=== PATIENT | male | born 1930 | race Caucasian/White ===

== ENCOUNTER 2017-01-07 13:33 | Emergency (ER) | payer MEDICARE, OTHER ==
[~2017-01-07 13:33] MED LIST: ADVAIR 250-501 EACH INH; AGGRENOX 25 MG-21 EA PO; ALBUTEROL2.5 MG/0.5 PO; ALBUTEROL2.5 MG/3 M INH; ASPIRIN EC81 MG PO; ASPIRIN-DIPYRI1 EACH PO; ATENOLOL25 MG PO; ATENOLOL50 MG PO; ATIVAN1 MG PO; COMBIVENT RESPIM4 GM; DICLOFENAC SODI75 MG PO; DUONEB 0.5 MG-33 ML; EFFEXOR XR37.5 MG PO; FLOMAX0.4 MG PO; FLOVENT DISKU250 MCG PO; GABAPENTIN100 MG PO; GABAPENTIN600 MG PO; HYDROCHLOROTH12.5 M1 PO; IPRAT-ALBUT 0.5-3 ML INH; ISOSORBIDE MONO30 MG PO; LEVAQUIN500 MG PO; LEVAQUIN750 MG PO; LIPITOR10 MG PO; LIPITOR40 MG PO; LISINOPRIL10 MG PO; LOTRISONE CREAM15 GM; LOTRISONE CREAM15 GM TOP; NEXIUM40 MG PO; NITROGLYCERIN0.4 MG SL; NITROSTAT0.4 MG SL; NORCO 5-325 TA1 EACH PO; PREDNISONE10 MG PO; PREDNISONE20 MG PO; PROZAC10 MG PO; RA P-COL RITE1 EACH PO; SINGULAIR10 MG PO; SPIRIVA18 MCG INH; THEO-24300 MG PO; TIGAN300 MG PO
== END 2017-01-07 14:00 | disposition home or self-care (01) ==
LOC: ED 13:33
DX: S61.211A Laceration without foreign body of left index finger without damage to nail, initial encounter (principal); Z00.8 Encounter for other general examination; X58.XXXA Exposure to other specified factors, initial encounter

== ENCOUNTER 2018-08-09 11:38 | Emergency (ER) | payer MEDICARE, OTHER ==
[~2018-08-09] VITALS: Ht 182.9 cm; Wt 94.3 kg
--- OUTSIDE RECORDS SUMMARY | 2018-08-09 11:40 | XMS ---
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 [facility]o VISIT COUNT (12 MO.) 1 [facility] TOTAL 1 NOTE: Visits indicate total known visits. ED/UCC VISIT TRACKING (12 MO.) 08/09/2018 11:[address] [facility] [place] TYPE: Emergency COMPLAINT: - SOB INPATIENT VISIT TRACKING (12 MO.) No inpatient visits to display in this time frame [email or web address]
[2018-08-09] MEDS ORDERED: RA P-COL RITE1 EACH PO (12:14)
[2018-08-09] MEDS ORDERED: ATORVASTATIN CA10 MG PO (12:15)
[2018-08-09] MEDS ORDERED: OMEPRAZOLE40 MG PO (12:16)
[2018-08-09] MEDS ORDERED: BREO ELLIPTA 21 EACH INH (12:16)
[2018-08-09] MEDS ORDERED: PROBIOTIC 4X C1 EACH PO (12:18)
[2018-08-09] MEDS ORDERED: MUCUS RELIEF400 MG PO (12:18)
[2018-08-09] MEDS ORDERED: PREDNISONE20 MG PO (15:07)
--- NOTE | 2018-08-10 11:30 | EKG ---
[facility] [address] [facility] [facility] [address] [place] [address] Signed Sinus rhythm with marked sinus arrhythmia with 1st degree AV block Left axis deviation Low voltage QRS Inferior infarct (cited on or before 25-SEP-2016) Abnormal ECG When compared with ECG of 25-SEP-2016 11:17, premature ventricular complexes are no longer present DC interval has increased Nonspecific T wave abnormality now evident in Anterior leads QT has shortened Confirmed by NIC MCKEE DO ([id number]) on 08/10/2018 11:30:24 AM Electronically Signed By: NIC MCKEE DO 08/10/18 1130 PATIENT NAME: KAMRAN ARAGON Electrocardiogram DATE OF : [birth year] PHYSICIAN: NIC MCKEE DO REPORT #: [id number] REPORT IS CONFIDENTIAL AND NOT TO BE RELEASED WITHOUT AUTHORIZATION
== END 2018-08-09 15:37 | disposition home or self-care (01) ==
LOC: ED 11:38
DX: J44.1 Chronic obstructive pulmonary disease with (acute) exacerbation (principal); N17.9 Acute kidney failure, unspecified; I50.9 Heart failure, unspecified; I25.2 Old myocardial infarction; Z99.81 Dependence on supplemental oxygen; Z87.891 Personal history of nicotine dependence; Z95.5 Presence of coronary angioplasty implant and graft; Z90.89 Acquired absence of other organs; Z79.899 Other long term (current) drug therapy; Z79.82 Long term (current) use of aspirin
CPT/HCPCS: 71045; 80053; 83735; 83880; 84484; 85025; 93005; 93010; 94640; 96360; 96361; 99285-25; J7030; J7512

== ENCOUNTER 2018-08-13 13:25 | Inpatient (IN) | payer MEDICARE, OTHER ==
[~2018-08-13] VITALS: Ht 182.9 cm; Wt 88.6 kg
[~2018-08-13 13:25] MED LIST changes: +ATORVASTATIN CA10 MG PO; +BREO ELLIPTA 21 EACH INH; +MUCUS RELIEF400 MG PO; +OMEPRAZOLE40 MG PO; +PROBIOTIC 4X C1 EACH PO
--- OUTSIDE RECORDS SUMMARY | 2018-08-13 13:28 | XMS ---
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 Care History Medical/Surgical 08/10/2018 [facility] - Patient is currently established with [facility]. If patient is seen in the ED during business hours. Please contact CHWs at [facility]. Care Recommendation: This patient has had 5 or more Emergency Department visits in the last 12 months.\T\nbsp; Patient requires education on the scope and purpose of the ED as an acute care provider not a Primary Care Provider and should not be utilized for chronic conditions.\T\nbsp; These are guidelines and the provider should exercise clinical judgment when providing care. E.D. VISIT COUNT (12 MO.) 2 ART [facility] TOTAL 2 NOTE: Visits indicate total known visits. ED/UCC VISIT TRACKING (12 MO.) 08/13/2018 13:26 [facility] [place] TYPE: Emergency COMPLAINT: - SOB 08/09/2018 11:[address] 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
--- NOTE | 2018-08-13 16:05 | NUR ---
88 YR OLD MALE PTIENT ADMITTED TO CCU FROM ED VIA STRETCHER UNDER DR. MCKEE WITH DX OF PNEUMONIA. PT FELL ON RIGHT SIDE LAST MONDAY, FX RIBS 6 AND 7 ON RIGHT SIDE WELL R SHOULDER PAIN. HAS INCREASED PAIN IN RIGHT SIDE WITH MOVEMENT.
--- NOTE | 2018-08-13 16:20 | NUR ---
VAPOTHERM APPLIED AT 40% AND 20 L. O2 SAT 90-92. NOLAND CATH 16 GA PLACED W/O PROBLEMS WITH RETURN OF ANGELA URINE.
--- NOTE | 2018-08-13 18:31 | NUR ---
TAKING CLEAR LIQUIDS WHILE VISITING WITH FAMILY/FRIENDS.
--- NOTE | 2018-08-13 18:57 | NUR ---
UA AND FLU SWAB SENT TO LAB. ABIMAEL NEED FOR PAIN MEDICATION.
--- NOTE | 2018-08-13 19:30 | NUR ---
REPORT TO NEXT SHIFT. PATIENT REMAINS ON VAPOTHERM AT 40 % AND 20 L, IVF INFUSING. NOLAND PATENT.
--- NOTE | 2018-08-13 20:10 | NUR ---
WATCHING TV. STATES IS COMFORTABLE AT THIS TIME. VERA VAPOTHERM WELL. URINE OUTPUT IS VERY GOOD.
--- NOTE | 2018-08-13 20:50 | NUR ---
RT IN TO GIVEN NEBS. VERA WELL.
--- NOTE | 2018-08-13 22:25 | NUR ---
SLEEPING. SATS 88. AWARE.
--- NOTE | 2018-08-14 00:10 | NUR ---
PT WAS SOUNDLY ASLEEP AND STARTLED WHEN AWAKENED. CALMED EASILY.REPOSITIONED UP IN BED. RT HERE TO GIVE NEBS. HAS UPPER AIRWAY CONGESTION AND ENCOURAGED TO COUGH. TAKING WATER WELL.
--- NOTE | 2018-08-14 01:12 | NUR ---
SLEEPING. SAT 88-89 WHILE ASLEEP.
--- NOTE | 2018-08-14 03:00 | NUR ---
CONT TO SLEEP WITH VAPOTHERM IN PLACE. SATS 88-91% .
--- NOTE | 2018-08-14 04:06 | NUR ---
AWAKE, STATES FEELING BETTER. HAS BEEN RESTING WELL. RT IN TO GIVE NEB.
--- NOTE | 2018-08-14 06:04 | NUR ---
AWAKE WATCHING TV AND DRINKING COFFEE. TALKATIVE. STATES FEELS LIKE HE IS READY TO GO HOME.
--- NOTE | 2018-08-14 06:05 | NUR ---
OVERALL PT HAD A GOOD NIGHT. STATES IS FEELING BETTER. CONT ON VAPOTHERM AT 40%, 20L.
--- NOTE | 2018-08-14 08:25 | NUR ---
PT VERY PLEASANT, CALM AND COOPERATIVE THIS MORNING. PT DENIES ANY PAIN, N/V OR BREATHING PROBLEMS, STATING THAT HE'S "READY TO GO HOME." EDUCATED PT ON IMPORTANCE OF OXYGENATION AND PLAN OF CARE. A/O BUT FORGETFUL. 20 L/MIN AND 40% O2 IN PLACE. PT'S LUNG SOUNDS COURSE THROUGHOUT. PT HAS PRODUCTIVE COUGH WITH LARGE SPUTUM PRODUCTION. LR RUNNING CONTINUOUSLY AT 75 ML/HR. ACTIVE BOWEL TONES. EDUCATION COMPLETED BUT HE NEEDS REINFORCEMENT. CALL LIGHT WITHIN REACH. FALL PRECAUTIONS IN PLACE. WILL CONTINUE TO MONITOR.
--- NOTE | 2018-08-14 09:30 | NUR ---
THIS RN ASSISTED PT UP TO THE RECLINER CHAIR AT THIS TIME. PT WAS VERY WEAK ON HIS FEET, BARELY ABLE TO BEAR HIS OWN WEIGHT, AND HE WAS VERY SOB WITH EXERTION/TRANSFER. AT THIS POINT, PT WAS ON 20 L/MIN AND SATURATIONS DROPPED TO 70'S. AFTER A FEW MINUTES IN CHAIR WITH DEEP BREATHES AND REST, PT'S OXYGEN SATURATION RETURNED TO 90'S. PT STILL DENIES ANY NEEDS TO BE MET. VERY PLEASANT AND COOPERATIVE. LINENS CHANGED. CALL LIGHT WITHIN REACH. FALL PRECAUTIONS IN PLACE. WILL CONTINUE TO MONITOR.
--- NOTE | 2018-08-14 10:20 | NUR ---
PT REMAINS UP IN THE CHAIR WATCHING TV. HE DENIES PAIN. HE DENIES ANY NEEDS TO BE MET AT THIS TIME. CALL LIGHT WITHIN REACH. FALL PRECAUTIONS IN PLACE. WILL CONTINUE TO MONITOR.
--- NOTE | 2018-08-14 11:20 | NUR ---
PT UP IN CHAIR VISITING WITH [employer]AXI SERVICER AND FRIEND. PT HAS JUST FINISHED VISITING WITH CASE MANAGEMENT. PT IS ON 8 L/MIN O2 AND 40% FIO2. NO C/O PAIN. NO QUESTIONS OR CONCERNS. UPDATED ON PLAN OF CARE AND NEEDS REINFORCEMENT ON WHY HE'S HERE IN HOSPITAL. CALL LIGHT WITHIN REACH. FALL PRECAUTIONS IN PLACE. WILL CONTINUE TO MONITOR.
--- NOTE | 2018-08-14 12:09 | NUR ---
PT STATES THAT WHEN HE IS READY FOR DC HE WILL BE RETURNING TO [facility] OR HE'S GOING TO BE STAYING RIGHT HERE. HE STATES HE WILL REFUSE TO GO TO A "LONG-TERM" EVER.
--- NOTE | 2018-08-14 12:10 | NUR ---
PT REMAINS UP IN THE CHAIR WITH NO C/O PAIN, N/V, QUESTIONS OR CONCERNS. PT STILL COMMENTS THAT HE'S "READY TO GO HOME" BUT I REINFORCED THE PLAN OF CARE WELL HIS O2 NEEDS ON VAPOTHERM. ASSESSMENT COMPLETED. NOLAND STILL DRAINING CLEAR, YELLOW, ADEQUATE URINE. LUNGS REMAIN COURSE SOUNDING. SEE CHARTED ASSESSMENT. VSS. CALL LIGHT WITHIN REACH. FALL PRECAUTIONS IN PLACE. WILL CONTINUE TO MONITOR.
--- NOTE | 2018-08-14 13:00 | NUR ---
PT REQUEST TO SIT ON COMMODE FOR POSSIBLE BM. PT'S FULL BED BATH COMPLETED AT THIS TIME. NOLAND CATH CARE COMPLETED. NO BM WAS HAD, JUST FLATUS. NOLAND CONTINUES TO DRAIN ADEQUATE AMOUNT OF URINE. PT ASSISTED BACK TO CHAIR WHERE HE REMAINS COMFORTABLE WITH NO C/O PAIN. STILL VERY PLEASANT, JOKING WITH THIS RN. CALL LIGHT WITHIN REACH. FALL PRECAUTIONS IN PLACE. WILL CONTINUE TO MONITOR.
--- NOTE | 2018-08-14 13:39 | EKG ---
[facility] [address] [facility] [place] [address] Signed Sinus tachycardia Left axis deviation Pulmonary disease pattern Nonspecific T wave abnormality Abnormal ECG When compared with ECG of 09-AUG-2018 11:55, IN interval has decreased Vent. rate has increased BY 38 BPM Non-specific change in ST segment in Anterior leads Confirmed by NIC MCKEE DO ([id number]) on 08/14/2018 1:38:49 PM Electronically Signed By: NIC MCKEE DO 08/14/18 1339 PATIENT NAME: MARGOKAMRAN Sha Electrocardiogram DATE OF : [birth year] PHYSICIAN: NIC MCKEE DO REPORT #: [id number] REPORT IS CONFIDENTIAL AND NOT TO BE RELEASED WITHOUT AUTHORIZATION
--- NOTE | 2018-08-14 14:20 | NUR ---
PT REQUEST FOR COMMODE AGAIN AT THIS TIME- MEDIUM SIZED BM WAS HAD. PT CLEANED AND ASSISTED BACK TO THE RECLINER. NO OTHER NEEDS TO BE MET AT THIS TIME. CALL LIGHT WITHIN REACH. FALL PRECAUTIONS IN PLACE. WILL CONTINUE TO MONITOR.
--- NOTE | 2018-08-14 15:24 | NUR ---
SCHEDULED TYLENOL GIVEN DESPITE PT STATING HE HAS NO PAIN- GIVEN FOR SORENESS FROM RECENT FALL. PT VS AND CONDITION REMAIN STABLE. HE STATES THAT HE FEELS "MUCH BETTER" THAN WHEN HE CAME IN TO HOSPITAL. HIS O2 SATURATIONS REMAIN ADEQUATE ON VAPOTHERM. NO QUESTIONS, CONCERNS OR REQUESTS AT THIS TIME. CALL LIGHT WITHIN REACH. PT VISIBLE FROM NURSES STATION. WILL CONTINUE TO MONITOR.
--- NOTE | 2018-08-14 16:20 | NUR ---
5 BEAT RUN OF VTACH AT THIS TIME
--- NOTE | 2018-08-14 16:25 | NUR ---
PT ASSISTED TO COMMODE AGAIN AT THIS TIME; PT HAD SECOND BM OF THE DAY. SOFT. MEDIUM. BROWN. ASSESSMENT COMPLETED. LUNGS COURSE AND WET THROUGHOUT ALL LOBES. VERY SOB WITH EXERTION TO AND FROM COMMODE/RECLINER. 02 SATS CONTINUE TO DROP TO 70'S WHILE TRANSFERING AND IT TAKES 2-3 MINUTES OF REST FOR PT'S SATS TO GO BACK TO 90'S. PT REMAINS ON 8 L/MIN 40% ON VAPOTHERM. PT VERY PLEASANT, CALM AND COOPERATIVE; A/O BUT FORGETFUL. PT CONTINUES TO HAVE THICK, YELLOW SPUTUM WITH HIS STRONG COUGH- PT ENCOURAGED TO COUGH AND DEEP BREATHE. PT HAS BEEN ON REGULAR DIET AND TOLERATING IT WELL. PT HAS BECOME STRONGER ON HIS FEET SINCE HIS INITIAL AMBULATION/PIVOT TO COMMODE. NOLAND IN PLACE AND WNL. CALL LIGHT WITHIN REACH. FALL PRECAUTIONS IN PLACE. WILL CONTINUE TO MONITOR.
--- NOTE | 2018-08-14 17:32 | NUR ---
PT UP IN CHAIR WATCHING NEWS ON TV. NO C/O PAIN, STATES THAT HE'S COMFORTABLE AND THAT HIS BREATHING IS "FINE." AWAITING HIS DINNER TRAY TO BE ORDERED. NO QUESTIONS OR CONCERNS. CALL LIGHT WITHIN REACH. FALL PRECAUTIONS IN PLACE. WILL CONTINUE TO MONITOR.
--- NOTE | 2018-08-14 18:15 | NUR ---
PT REMAINS UP IN CHAIR EATING DINNER. CALL LIGHT WITHIN REACH. WILL CONTINUE TO MONITOR.
--- NOTE | 2018-08-14 21:00 | NUR ---
ASSESSMENT COMPLETED. PT REMAINS SITTING UP IN CHAIR, FORGETFUL AT TIMES. DENIES PAIN. LUNGS SOMEWHAT COARSE, VAPOTHERM IN PLACE AT 8L WITH FIO2 40%. DENIES SOB WHILE AT REST. IV PATENT, INFUSING WNL. PT DENIES NEEDS AT THIS TIME, CALL LIGHT WITHIN REACH.
--- NOTE | 2018-08-14 22:30 | NUR ---
PT UP TO BSC WITH 2-PA. HAD MEDIUM-SIZED SOFT BM AND THEN RETURNED TO CHAIR. PT BECOMES SOB WITH ACTIVITY AND DESATURATES INTO 70'S. ONCE HE IS BACK IN CHAIR, SATURATIONS INCREASE BACK TO 91%. NOLAND EMPTIED, URINE IS YELLOW IN COLOR. PT PROVIDED WITH WARM BLANKET PER REQUEST. CALL LIGHT REMAINS WITHIN REACH.
--- NOTE | 2018-08-14 23:30 | NUR ---
PT UP TO BSC WITH 2-PA PER REQUEST. PT UNABLE TO HAVE BM AND RETURNED TO BED. WITH ACTIVITY, PT SOB AND STATES "I NEED MORE AIR!" TITRATED VAPOTHERM UP TO 15L. ABLE TO TITRATE BACK TO 8L ONCE HE IS BACK IN CHAIR. CALL LIGHT WITHIN REACH.
--- NOTE | 2018-08-15 00:25 | NUR ---
ASSESSMENT COMPLETED, NO CHANGES FROM PREVIOUS ASSESSMENT. LUNGS REMAIN COARSE, VAPOTHERM IN PLACE AT 8L/40% FIO2, R.T. IN TO GIVE BREATHING TREATMENT. PT DENIES SOB WHILE AT REST. GLASS OF MILK PROVIDED PER REQUEST. CALL LIGHT WITHIN REACH.
--- NOTE | 2018-08-15 00:34 | NUR ---
R.T. TITRATED VAPOTHERM TO 15L AT THIS TIME. PT APPEARS SOMEWHAT AGITATED AND RESTLESS AND STATES HE IS HAVING TROUBLE FALLING ASLEEP. ENCOURAGED PT TO REST. SPO2:93% AT THIS TIME.
--- NOTE | 2018-08-15 02:28 | NUR ---
PT REPORTS 10/10 PAIN IN RIGHT RIBS, PRN TYLENOL ADMINISTERED AT THIS TIME. PT REMAINS SITTING UP IN CHAIR, STATES HE DOES NOT WANT TO GO TO THE BED. VAOPTHERM SETTINGS UNCHANGED. NO FURTHER REQUESTS AT THIS TIME, CALL LIGHT WITHIN REACH.
--- NOTE | 2018-08-15 04:25 | NUR ---
ASSESSMENT COMPLETED, NO CHANGES FROM PREVIOUS ASSESSMENT. PT STATES THAT HIS PAIN HAS IMPROVED SLIGHTLY SINCE RECEIVING PRN TYLENOL. LUNGS REMAIN COARSE, VAPOTHERM IN PLACE 15L 40% FIO2. NOLAND PATENT, UO QS. IV PATENT, INFUSING WNL. R.T. IN TO GIVE BREATHING TREATMENT. CALL LIGHT REMAINS WITHIN REACH. NO FURTHER REQUESTS AT THIS TIME.
--- NOTE | 2018-08-15 07:45 | NUR ---
PT VERY AGITATED AT THIS TIME AND RN ENTERED ROOM TO FIND PT HOLDING HIS IV AFTER PULLING IT OUT. PT AGITATED OVER SALESPERSON WHO CALLED HIS CELL PHONE THIS MORNING. THERAPEUTIC COMMUNICATION GIVEN- PT ABLE TO BE TALKED DOWN BUT HE QUICKLY GETS WORKED UP. WILL CONTINUE TO CALM PT WITH CONVERSATION. CALL LIGHT WITHIN REACH. FALL PRECAUTIONS IN PLACE. WILL CONTINUE TO MONITOR.
--- NOTE | 2018-08-15 08:35 | NUR ---
PT UP IN RECLINER. PT IRRITABLE, AGITATED AND FRUSTRATED. THERAPEUTIC COMMUNICATION AND EMOTIONAL SUPPORT PROVIDED. REORIENTED PT TO SITUATION AND SURROUNDINGS HE WAS CONFUSED TO THEM. OTHERWISE, ALERT AND ORIENTED. FORGETFUL. 15 L/MIN AND 40% FIO2 VIA VAPOTHERM. PRODUCTIVE COUGH WITH THICK YELLOW SPUTUM. COARSE LUNG SOUNDS. ASSISTED PT TO AND FROM COMMODE AT THIS TIME- SMALL SMEAR ON CHUX PAD THAT WAS UNDER PT. NOLAND CATH IN PLACE WITH ADEQUATE, CLEAR YELLOW URINE OUTPUT. TYLENOL GIVEN FOR PT'S RIGHT RIGH PAIN- UNABLE TO RATE PAIN SCORE. EDUCATION COMPLETED WITH PT BUT HE REQUIRES REINFORCEMENT. PT HAS NO IV ACCESS AT THIS TIME PT PULLED IT OUT HIMSELF AT 0745. WILL PLACE NEW IV. CALL LIGHT WITHIN REACH. PT VISIBLE FROM NURSES STATION. WILL CONTINUE TO MONITOR.
[2018-08-15] MEDS ORDERED: NEURONTIN600 MG PO (09:40)
[2018-08-15] MEDS ORDERED: SPIRIVA18 MCG INH (09:41)
--- NOTE | 2018-08-15 09:44 | NUR ---
Medications reconciled using pharmacy records and patient interview
--- NOTE | 2018-08-15 10:10 | NUR ---
NOLAND CATH REMOVED AT THIS TIME PER DR. SANDOVAL'S VERBAL ORDER. NOLAND REMOVED WITHOUT COMPLICATION- PT EDUCATED ON ELIMINATION. PT DUE TO VOID AND I WILL MONITOR THIS. PER JEAN PIERRE AT THE BEDSIDE, PT IS INCONTINENT. CALL LIGHT WITHIN REACH. FALL PRECAUTIONS IN PLACE. WILL CONTINUE TO MONITOR.
--- NOTE | 2018-08-15 10:47 | NUR ---
PT MUCH MORE CALM AND COOPERATIVE AT THIS TIME COMPARED TO THIS MORNING. HIS CAREGIVER JEAN PIERRE IS AT HIS SIDE. PRN NORCO TAB GIVEN FOR RIB PAIN. CALL LIGHT WITHIN REACH. WILL CONTINUE TO MONITOR.
--- NOTE | 2018-08-15 11:20 | NUR ---
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 FREQUENT EMOTIONAL SUPPORT GIVEN. CALL LIGHT WITHIN REACH. WILL CONTINUE TO MONITOR.
--- NOTE | 2018-08-15 12:30 | NUR ---
LARGE INCONTINENT EPISODE OF URINE AT THIS TIME WHILE PT UP IN CHAIR- HE'S ABLE TO TELL WHEN HE NEEDS TO GO BUT IS UNABLE TO HOLD IT. CLEANED PT AND COMPLETED SECOND ASSESSMENT AT THIS TIME. PT HAS BEEN WEANED DOWN TO 10 L/MIN WITH FIO2 40% ON VAPOTHERM. LOW 90'S O2 SAT. PT'S RIGHT RIB PAIN MORE UNDER CONTROL. JEAN PIERRE REMAINS AT THE BEDSIDE. PT HAS NO REQUESTS. PT DISORIENTED TO SITUATION- REORIENTATION COMPLETED. PT'S NUTRITION IS SOMEHWAT WORSE TODAY- HE HAS LESS OF AN APPETITE; HE ONLY HAD A FEW BITES OF OATMEAL FOR BREAKFAST AND A FEW BITS OF SOUP FOR LUNCH. HE STILL HAS NO FLUIDS RUNNING HE HAS YET TO GET PIV ACCESS. WORKING ON THIS. CALL LIGHT WITHIN REACH. WILL CONTINUE TO MONITOR.
--- NOTE | 2018-08-15 12:48 | NUR ---
NEW 22 GAUGE PIV PLACED IN RIGHT HAND WITHOUT COMPLICATION. SOLUMED GIVEN AT THIS TIME. CALL LIGHT WITHIN REACH. WILL CONTINUE TO MONITOR. PT SALINE LOCKED PER DR. SANDOVAL'S ORDER. PT ENCOURAGED TO KEEP UP PO FLUID INTAKE.
--- NOTE | 2018-08-15 13:15 | NUR ---
ASSISTED PT WITH STANDING AT THE RECLINER- PT VERY AGITATED WITH THIS AND RELUCTANT TO STAND- EDUCATION GIVEN TO HIM ON FALL PREVENTION WITH OUR ASSISTANCE. JEAN PIERRE HELPING TO CALM HIM. HE STOOD I CLEANED ANOTHER BM SMEAR/CHANGED HIS CHUX PAD ON THE CHAIR. ANOTHER INCONTINENT EPISODE PRESENT.
--- NOTE | 2018-08-15 15:13 | NUR ---
PRN NORCO GIVEN AGAIN AT THIS TIME. PT REMAINS UP IN THE CHAIR WITH CAREGIVER JEAN PIERRE AT HIS SIDE. PT MAINTAINING >90% ON 8 L/MIN AT 40% FIO2 ON VAPOTHERM. PT DENIES ANY NEEDS TO BE MET AT THIS TIME. HE'S CURRENTLY EATING ICE CREAM. CALL LIGHT WITHIN REACH. FALL PRECAUTIONS IN PLACE. WILL CONTINUE TO MONITOR.
--- NOTE | 2018-08-15 16:18 | NUR ---
PT UP IN CHAIR GETTING BREATHING TREATMENT BY RT. HE DENIES ANY PAIN AT THIS TIME AFTER GETTING PRN NORCO LAST HOUR. UP IN CHAIR. CAREGIVER HAS LEFT BUT STATES SHE WILL BE BACK TODAY. PT MUCH MORE CALM, LAUGHING AND JOKING WITH THIS RN. CALL LIGHT WITHIN REACH. FALL PRECAUTIONS IN PLACE. WILL CONTINUE TO MONITOR.
--- NOTE | 2018-08-15 17:15 | NUR ---
ENTERED ROOM TO FIND PT'S WATER CUP WITHOUT ITS LID, SPILLED ON THE GROUN AND SOME URINE IN THE CUP. PT GIVEN COMPLETE BEDBATH, BRIEF AND GOWN CHANGED. PT STILL IRRITABLE AT TIMES AND BECOMES VERY AGITATED QUICKLY. HE'S EASY TO TALK DOWN WITH CONVERSATION. MID BATH HIS CAREGIVER JEAN PIERRE ARRIVED. SHE'S NOW AT HIS SIDE IN HIS ROOM. ORDERED PT'S DINNER. PT DENIES ANY PAIN RIGHT NOW EXCEPT WHEN HE'S MOVING AROUND IN THE RECLINER. CALL LIGHT WITHIN REACH. WILL CONTINUE TO MONITOR.
--- NOTE | 2018-08-15 18:25 | NUR ---
PT SITTING UP IN CHAIR AND DINNER JUST ARRIVED- ENCOURAGEMENT GIVEN TO EAT DINNER/ DRINK HIS ENSURE. WILL CONTINUE TO MONITOR.
--- NOTE | 2018-08-15 19:24 | NUR ---
PT HAS BECOME SLIGHTLY MORE CONFUSED THIS EVENING. JEAN PIERRE AT BEDSIDE AND SON PABLO HAS JUST ARRIVED. HELPED PT STAND TO CHANGE HIS WET BRIEF AFTER PT HAD HOLD OF HIS PENIS AND URINATED IN THE AIR- BLANKETS CHANGED AND PT CLEANED UP. PT ON 7 L/MIN 40% FIO2 ON VAPOTHER WITH O2 SAT AT 92%.
--- NOTE | 2018-08-15 19:37 | NUR ---
NOTIFIED DR. SANDOVAL AT THIS TIME OF PT'S WORSENING CONFUSION. ALSO UPDATED HIM ON PT'S WEANED OXYGEN AT 7 L/MIN ON VAPOTHERM. VSS AND AFEBRILE. REPORT GIVEN TO RECEIVING RN.
--- NOTE | 2018-08-15 19:58 | NUR ---
ABG JUST DONE BY RT, AWAITING RESULTS. PT SITTNG UP IN CHAIR TALKING WITH SON. HR 80, SPO2 93% RR 16 ON VAPOTHERM 7L/40%. PT IS CHEERFUL AND COOPERATIVE AT THIS TIME BUT SLIGHTLY CONFUSED.
--- NOTE | 2018-08-15 20:40 | NUR ---
PT SWITCHED TO OXYMASK PER DR SANDOVAL ORDER, START OUT AT 6L TOLERATING WELL SPO2 92%.
--- NOTE | 2018-08-15 21:00 | NUR ---
PT IS HAVING SIGNS OF HALLUCINATIONS, PATTING AND HOLDING IV PUMP AND REFERRING TO IT "THAT JODY" ASKING WHY HE KEEPS STARING AT HIM AND THREATENING "IM GOING TO SOCK HIM!" THEN APOLOGIZING REPEATEDLY TO IT. PT ASSISTED UP TO BED WITH 2 PEOPLE AND WALKER, PT HAD VERY LITTLE ACTIVITY TOLERANCE. DISTANCE FROM CHAIR TO BED WAS JUST A PIVOT AND PT UNABLE TO STAND UP ON HIS OWN FOR MORE THAN A FEW SECONDS . HR WENT FROM 80'S TO 130'S AND RESP BECAME VERY LABORED WITH LOTS OF AUDIBLE WHEEZING AND RHONCHI HEARD. ONCE IN BED IT TOOK APPROX 15 MIN FOR PT TO RECOVER HIS BREATHING ALTHOUGH HR DROPPED DOWN TO 90'S FAIRLY QUICKLY. SPO2 REMAINED 93-96% ON OXYMASK 3L DURING THIS TIME. PT IS STATING HE IS TIRED AND WANTS TO SLEEP. HS MEDS GIVEN, TV AND LIGHTS TURNED OUT, CALL LIGHT IN HAND AND PT ENCOURAGED TO REST AND SLEEP.
--- NOTE | 2018-08-15 22:30 | NUR ---
PT HAD FALLEN ASLEEP AND WAS SLEEPING WHEN HE WOKE UP TO VOID, VOIDED OFF THE SIDE OF THE BED AND ONTO LINENS. COMPLETE BED CHANGE DONE, PT TOLERATED POORLY WITH INCREASED PAIN AND SOB. ALSO INC STOOL. AFTER PT CLEANED AND REPOSITIONED, HE WENT BACK TO SLEEP AFTER A BIT.
--- NOTE | 2018-08-16 02:00 | NUR ---
PT CONT TO SLEEP RESTFULLY.
--- NOTE | 2018-08-16 03:57 | NUR ---
PT CONT TO SLEEP, WILL HOLD ON ASSESSMENT AT THIS TIME. PT CONT ON 3L OXYMASK WITH SPO2 95% HR 60'S.
--- NOTE | 2018-08-16 03:59 | NUR ---
PT CONT TO SLEEP, WILL HOLD ASSESSMENT UNTIL LAB ARRIVES. SPO2 93% AND RR 15.
--- NOTE | 2018-08-16 06:00 | NUR ---
PT CONT TO SLEEP. VSS.
--- NOTE | 2018-08-16 08:54 | NUR ---
PT INCONTENT OF URINE, ATTENDS CHANGED, COMPLETE LINE CHANGE, THEN PT PLACED IN A PULL UP THEN TO THE CHAIR. BKF PRESENT AND PT IS CURRENTLY FEEDING SELF.
--- NOTE | 2018-08-16 09:42 | NUR ---
VERBAL REPORT GIVEN TO NELSY ALL QUESTIONS ANSWERED. PT CAREGIVER JEAN PIERRE WAS INTO VISIT.
--- NOTE | 2018-08-16 09:58 | NUR ---
HANDOFF REPORT RECEIVED FROM RN. PT SITTING IN CHAIR. PT ON 2L NC, O2 SATS 91%, OCCASIONAL LOOSE NONPRODUCTIVE COUGH, LUNG SOUNDS COARSE THROUGHOUT. PT RATING PAIN 2/10 TO RIGHT CHEST AND SIDE, LIDOCAINE PATCH IN PLACE. CMS INTACT, WITHOUT EDEMA. PT FREQUENTLY ASKING TO USE URINAL, DOES NOT URINATE. PT ORIENTED TO TIME, PLACE AND SELF, UNABLE TO RECALL EVENT RELATED TO ADMISISON. SALINE LOCKED. POOR ORAL INTAKE, ENCOURGAED TO DRINK BREAKFAST. PT DENIES OTHER NEEDS AT THIS TIME.
--- NOTE | 2018-08-16 11:25 | NUR ---
PT INCONTINENT OF URINE, PERICARE PERFORMED, BRIEFS CHANGED. PT DESATS TO 86% ON 2L WITH ACTIVITY, RECOVERED QUICKLY. PT NOW SITTING IN CHAIR, CAREGIVER AT BEDSIDE. PT DENIES OTHER NEEDS AT THIS TIME.
--- NOTE | 2018-08-16 12:22 | NUR ---
PT INCONTINENT OF URINE, 2PA TO STAND, PERICARE PERFORMED. PT SITTING IN CHAIR, DESATS WITH ACTIVTY TO MID 80'S, RECOVERED QUICKLY. PT DENIES OTHER NEEDS AT THIS TIME.
--- NOTE | 2018-08-16 12:53 | NUR ---
AFTERNOON ASSESSMENT COMPLETED. PT COTNINUES TO BE ON 2L NC, LUNG SOUNDS COARSE WITH EXPIRATORY WHEEZE, ENCOURAGED TO COUGH AND DEEP BREATHE. PT INCONTINENT OF URINE, PERICARE PERFORMED. MD TO BEDSIDE, PLAN TO TRANSFER TO MED/SURG FLOOR. LUNCH AT BEDSIDE. PT DENIES OTHER NEEDS AT THIS TIME.
--- NOTE | 2018-08-16 14:56 | NUR ---
PT RESTING IN CHAIR. PT WITH POOR INTAKE FOR LUNCH, PROVIDED WITH ENSURE. PT DENIES OTHER NEEDS AT THIS TIME.
--- NOTE | 2018-08-16 15:30 | NUR ---
BEDBATH COMPLETED, HAIR WASHED. PT 2PA TO TRANSFER BACK TO BED, REQUIRES ENCOURAGEMENT. PT INCONTINENT OF URINE, PERICARE PERFORMED. PT WITH SMALL AMOUNT OF BLEEDING FRON INJECTION SITE ON ABD, BANDAID APPLIED. PT DENIES OTHER NEEDS AT THIS TIME. CALL LIGHT AND PERSONAL BELONGINGS WITHIN REACH.
--- NOTE | 2018-08-16 16:26 | NUR ---
PT ARRIVED ON FLOOR AT 1605 FROM CCU. PT OVERALL IS IN GOOD SPIRITS. ALL LOBES ARE VERY COARSE BUT PT DENIES SOB. PT IS ON 2L O2 NC. ABD SOUNDS ARE PRESENT, OVERALL STRENGTH IS +5. WILL CONTINUE TO MONITOR. CAREGIVER AT BEDSIDE.
--- NOTE | 2018-08-16 17:29 | NUR ---
PT ARRIVED ON FLOOR FROM CCU AT 1605. PT SINCE THEN OVERALL IS IN GOOD SPIRITS. PT SEEMS ONLY PAINFUL WHEN HIS RIGHT RIBS ARE TOUCHED OR HE IS BEING MOVED AROUND IN BED. PO INTAKE HAS BEEN ENCOURAGED. PT IS INCONT. OF URINE, ATTENDS IN PLACE. ALL LOBES ARE VERY COARSE AND PT HAS A PRODUCTIVE COUGH. NO NEW CONCERNS NOTED SO FAR. PT AT TIMES NEEDS ENCOURAGEMENT TO DO THINGS SUCH SITTING OR STANDING UP. PT IS ABLE TO DO MORE THAN WHAT HE THINKS HE CAN.
--- NOTE | 2018-08-16 18:00 | NUR ---
PATIENT IN BED WATCHING TV. VITAL SIGNS AND I&O DONE. CALL LIGHT WITHIN REACH. NO OTHER NEEDS AT THIS TIME
--- NOTE | 2018-08-16 21:50 | NUR ---
VITALS AND I&OS DONE AND CHARTED. WITH THE HELP OF RN [place] WE GOT HIS ATTEND CHANGED. BEDSIDE TABLE AND CALL LIGHT IN REACH . PT NEEDS NOTHING MORE AT THIS TIME.
--- NOTE | 2018-08-16 21:55 | NUR ---
SEMI COOP WITH ASSESSMENT. ICONTINET OF URINE, UP TO SIDE OF BED WITH 2 PERSON ASSIST AND FWW, DID NOT TOLERATED WELL, VERBALLY VIOLENT AND MAKING FIST. REDIRECTABLE
--- NOTE | 2018-08-17 00:59 | NUR ---
RESTING, EYES CLOSED, NO DISTRESS, O2 NC INPLACE 2L, NO COUGH HEARD WHEN RESTING, CALL LIGHT AT HANDS REACH. HOB ELEVATED, BED ALARM ON
--- NOTE | 2018-08-17 03:15 | NUR ---
RESTING, NO RESP DISTRESS, HOB ELEVATED, NO COUGH HEARD, O2 2LNC IN PLACE. CALL LIGHT AT BEDSIDE, HIGH FALL RISK PRECAUTIONS IN PLACE, BED ALARM ON
--- NOTE | 2018-08-17 04:49 | NUR ---
I HEARD A BEEP FROM AN IV AND THOUGHT IT WAS IN ROOM 111 AND I CHECKED AND THE PATIENT WAS VERY CONFUSED. HE SAID "I DONT KNOW WHAT HAPPENED, I PISSED MYSELF ITS EVERYWHERE." I CHANGED THE BEDDING FOR HIM AND FOUND HIS DENTURES, CELLPHONE AND IS IN HIS BED. HE SEEMED TO ONLY HAVE SOAKED THE TOP BEDDING.
--- NOTE | 2018-08-17 05:04 | NUR ---
AWAKE IN BED, WATCHING TV. O2 2L NC IN PLACE, LUNGS COARSE AND DIMMINISHED SOUNDS, MOIST NON PRODUCTIVE COUGH PRESENT. VERY IRRITABLE, VERBALLY ANGRY AND MAKING FISTS TOWARDS STAFF AT BEGINNING OF SHIFT. REASSURED WITH LITTLE SUCCESS. SLEPT. HAS BEEN INCONTINENT OF URINE X2 THIS SHIFT, DECLINED TO BE TURNED TO R SIDE DUE TO PAIN AND DX OF R RIB FX. AND R ARM PAIN. UP TO EDGE OF BED W 2 PA AND FWW, TOLERATED FAIR, ATTENDS IN PLACE, BED ALARM ON. NOT LISTENING TO INSTRUCTIONS. HOB ELEVATED/ASPIRATIONS AND FALL PRECAUTIONS IN PLACE. MEDICATED X1 WITH NORCO C/O R SIDED PAIN. DELINED TO HAVE BP TAKEN, AFEBRILE, NO C/O CP
--- NOTE | 2018-08-17 05:05 | NUR ---
RN [place] AND MYSELF WERE DOING VITALS AND PATIENT WAS PERSISTENT ABOUT HAVING THE BLOOD PRESSURE CUFF OFF OF HIS ARM.
--- NOTE | 2018-08-17 07:52 | NUR ---
PATIENT IN BED. PATIENT'S BREAKFAST ORDERED. CALL LIGHT WITHIN REACH. BED ALARM ON. NO OTHER NEEDS AT THIS TIME
--- NOTE | 2018-08-17 08:00 | NUR ---
RECEIVED REPORT AT 0700 AND FOUND PT IN BED AWAKE VERY ANGRY. PT NEEDED TO BE CHANGED AND WE NEEDED TO STAND HIM UP SINCE HE REFUSED TO BE ROLLED IN BED. PT GRABBED MATERIALS TECH BY THE COLLAR. PT STATED THAT HE HAD ENOUGH AND WANTED TO GO HOME. WILL LET MD SANDOVAL KNOW. PAIN IS ALSO POORLY CONTROLLED AND THAT NEEDS TO BE CHANGED.
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
--- NOTE | 2018-08-17 08:22 | NUR ---
PT WAS DIFFICULT TO ASSES THIS AM. MINIMAL RESPONSES OTHER THAN "I WANT TO GO HOME". PT UNABLE TO REPORT PAIN BUT WAS IN VISIBLE DISTRESS AND WAS VERY RESTLESS. WATER AND ENSURE OFFERED. PT RESTING NOW WITH CALL LIGHT IN REACH AND BED RAILS UP.
--- NOTE | 2018-08-17 09:49 | NUR ---
SN in room for AM medications. PT reported pain of 5/10 and moderate discomfort while moving, PRN [place] given per request. PTs mood has improved in the last hour however he still states that he would like to go home today. Fluids were encouraged and patient was able to drink independently. PT tolerated interactions well and appeared less SOB than an hour ago. O2 sats were @ 91% so O2 was increased to 3LPM. PT denies any further needs. Will reevaluate pain and continue to monitor.
--- NOTE | 2018-08-17 10:00 | NUR ---
PT REFUSED PT THIS MORNING. ALL LOBES ARE COARSE AND PT STATED AGAIN THAT HE WANTS TO GO HOME. MD SANDOVAL TO BE CALLED.
--- NOTE | 2018-08-17 10:45 | NUR ---
NORCO 5/325 1 TAB WAS GIVEN. PT WILL BE CHANGED IN 30MIN AND THEN PT WILL TRY AGAIN AT 1130. WILL CONTINUE TO MONITOR.
--- NOTE | 2018-08-17 12:18 | NUR ---
PT WAS WILLING TO STAND UP WITH PT AT AROUND 1130. PT SEEMS TO BE VERY SCARED ABOUT FALLING DOWN. PT O2 SATS DECREASED TO THE MID 80'S ON 2L O2 NC WHILE STANDING. O2 WAS INCREASED TO 4L WHILE STANDING WITH PHYSICAL THERAPY. PT AT THIS TIME IS UP IN CHAIR. MD SANDOVAL WAS INFORMED. WILL CONTINUE TO MONITOR.
--- NOTE | 2018-08-17 14:03 | NUR ---
PATIENT SITTING UP IN CHAIR AND RESTING. I&O DONE. CALL LIGHT WITHIN REACH. CHAIR ALARM ON. NO OTHER NEEDS AT THIS TIME
--- NOTE | 2018-08-17 14:05 | NUR ---
PT AT THIS TIME IS SLEEPING. NO V/S TO BE DONE AT THIS TIME. WILL DO THEM WHEN PT IS AWAKE. NO NEW CONCERNS NOTED AT THIS TIME.
--- NOTE | 2018-08-17 16:00 | NUR ---
PT ATE SOME LATE LUNCH WHIL CAREGIVER WAS PRESENT. PT AT THIS TIME IS SLEEPING.
--- NOTE | 2018-08-17 16:02 | NUR ---
AT START OF SHIFT PT WAS VERY AGITATED AND ALSO AGRESSIVE TOWARD STAFF. PT REFUSED PHYS. THER. THE FIRST TIME AROUND. PAIN ALSO WAS AN ISSUE. AFTER PT RECIEVED AN EXTRA DOSE OF NORCO 5/325, PT WAS WILLING TO STAND UP WITH PHYS. THERAPY. AND PIVOT TO THE CHAIR. PT IS FAR FROM HIS BASELINE OVERALL. AT HOME PT IS ABLE TO WALK, MICROWAVE HIS FOOD, SHOWER INDEPENDENTLY AND IS NOT INCONTINENT. PT WISHES TO GO HOME BUT AT THIS TIME IT DOES NOT SEEM TO BE A GOOD IDEA.
--- NOTE | 2018-08-17 17:47 | NUR ---
PATIENT SITTING UP IN CHAIR. RN IN ROOM. VITAL SIGNS AND I&O DONE. WE TRIED TO CHANGE THE PATIENT'S ATTEND BUT THE PATIENT SHOUTED AT US AND WAS ANGRY. THE RN SAYS THAT HE IS GOING TO GAVE SOME PAIN MEDICATION TO THE PATIENT AND WE NEED TO WAIT TO CHANGE THE ATTEND. CALL LIGHT WITHIN REACH. NO OTHER NEEDS AT THIS TIME
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
--- NOTE | 2018-08-17 22:08 | NUR ---
ASSESSMENT AND MEDICATIONS DUE. pt SITTING UP IN BED WATCHING TV. REPORTED "I CAN'T BREATH", O2 SAT 92% ON 3 L VIA OXY MASK. OFFERED WATER. pt UNABLE TO VERBALIZE ANY OTHER SYMPTOMS. EDUCATED ABOUT O2 LEVEL AND OFFERED SUGGESTIONS TO MAKE pt MORE COMFORTABLE. BREATHING SHALLOW DUE TO RIGHT RIB FX. ASSESSMENT CONTINUED pt APPEARED TO BREATH MORE EVENLY AND TOLD STORIES. ASSESSMENT DONE. MEDICATIONS GIVEN (SEE MAR). NO REQUESTS AT THIS TIME. CALL LIGHT WITHIN REACH.
--- NOTE | 2018-08-17 22:11 | NUR ---
VITALS AND I&OS DONE AND CHARTED. FRESH WATER GIVEN. BEDSIDE TABLE AND CALL LIGHT IN REACH. PT NEEDS NOTHING MORE AT THIS TIME.
--- NOTE | 2018-08-18 00:30 | NUR ---
ROUNDED ON pt. RESTING WITH EYES CLOSED, RESPIRATIONS REGULAR. CALL LIGHT WITHIN REACH.
--- NOTE | 2018-08-18 02:23 | NUR ---
ROUNDED ON pt. AWAKE WATCHING TV. REPOSITIONED. STATED HE WAS HAVING PAIN 5/10. ASSESSMENT DONE. LUNG SOUNDS SLIGHTLY IMPROVED STILL COARSE. NO OTHER CHANGES FROM PRIOR ASSESSMENT. LIGHTS OFF FOR COMFORT. CALL LIGHT WITHIN REACH.
--- NOTE | 2018-08-18 04:55 | NUR ---
ROUNDED ON pt. RESTING WITH EYES CLOSED, RESPIRATIONS REGULAR, RATE = 16. CALL LIGHT WITHIN REACH.
--- NOTE | 2018-08-18 05:27 | NUR ---
pt RESTED ON AND OFF DURING SHIFT. PAIN CONTROLLED WITH PRN MEDS X1. REPORTED SOB AT BEGINNING OF SHIFT REPOSITIONED AND CHANGED TO OXYMASK FROM NC HE WAS MOUTH BREATHING, SOB RESOLVED. 2PA, FWW. IV SL. TOLERATING REGULAR DIET. YENNIFER FOR ASSISTANCE IN STEAD OF USING CALL LIGHT.
--- NOTE | 2018-08-18 07:04 | NUR ---
ATTEMPTING TO CHANGE LINENS. pt NON-COOPERATIVE. IN PAIN, REFUSES TO USE NUMERIC SCALE. GAVE 2 PRN TABS (SEE MAR). REFUSED WATER TO SWALLOW PILLS. FORCEFULLY PUSHED WATER AWAY. CONTINUALLY REPEATS "I WANT TO GO HOME". ABLE TO SWALLOW ONE PILL SPIT THE OTHER OUT. KENNEL SUPERVISOR'S IN ROOM TO CONTINUE TO CHANGE pt.
--- NOTE | 2018-08-18 07:23 | NUR ---
WITH THE HELP OF PIN ATTACHER'S SERINA WE DID A COMPLETE BED CHANGE DUE TO INCONTINET OF URINE. CHANGED GOWN WELL. PT WAS VERY ANGRY AND YELLING AT US. BEDSIDE TABLE AND CALL LIGHT IN REACH. BED ALARM SET. PT WANTS US TO LEAVE THE ROOM.
--- NOTE | 2018-08-18 07:35 | NUR ---
Pt in bed at this time, confused. Oxymask intact, 3L oxygen per home setting. Pt depends recently changed. Persona supplies and call light within reach. Bed alarm intact, close to RN station.
--- NOTE | 2018-08-18 08:01 | NUR ---
PATIENT'S BREAKFAST ORDERED
--- NOTE | 2018-08-18 10:56 | NUR ---
Pt assisted up to chair with james lift, x4 person assist.
--- NOTE | 2018-08-18 15:50 | NUR ---
FAMILY HERE TO VISIT PATIENT. NO NEEDS AT THIS TIME. PT TRANSITIONED BACK TO BED VIA JINNY LIFT.
--- NOTE | 2018-08-18 17:50 | NUR ---
HOME CAREGIVER IN VISITING [facility] PT. PT DENIES NEED TO VOID. PT STATES RIB PAIN IS IMPROVING. PERSONAL SUPPLIES AND CALL LIGHT WITHIN REACH. NO NEEDS AT THIS TIME.
--- NOTE | 2018-08-18 18:41 | NUR ---
CONFUSED, COMBATIVE AT TIMES. RIGHT RIB PAIN BETTER CONTROLLED WITH NEW OXYCODONE. 4L NC; 3L PER HOME. SL. 2PA WITH WALKER AT BASELINE. JINNY LIFT TODAY. BED ALARM.
--- NOTE | 2018-08-18 19:04 | NUR ---
RECEIVED REPORT FROM NEVIN ALSTON, WHITEBOARD UPDATED. pt RESTING IN BED AWAKE. CHUX WET. GAMALIEL ROONEY, AND GARCIA JO AND THIS RN CHANGED BEDDING BY ROLLING pt. pt COMPLAINED AND ASKED THAT WE STOP MULTIPLE TIMES. DEPENDS IN PLACE. VISITOR AT BEDSIDE.
--- NOTE | 2018-08-18 20:46 | NUR ---
VITALS AND I&OS DONE AND CHARTED. BEDSIDE TABLE AND CALL LIGHT IN REACH. HELPED HIM USE THE URINAL. PT NEEDS NOTHING MORE AT THIS TIME.
--- NOTE | 2018-08-18 21:20 | NUR ---
ASSESSMENT AND MEDICATIONS DUE. pt COOPERATIVE. ASSESSMENT DONE. STATES "IT HURTS" BUT UNABLE TO GIVE A NUMBER FOR PAIN. CONTINUALLY STATES "I JUST WANT TO GO HOME". UPDATED ON PLAN OF CARE, AGREEABLE TO PLAN. LIGHTS DIMMED FOR COMFORT. CALL LIGHT WITHIN REACH. BED ALARM ON.
--- NOTE | 2018-08-18 23:32 | NUR ---
ROUNDED ON pt. RESTING IN BED. CALL LIGHT WITHIN REACH. BED ALARM ON.
--- NOTE | 2018-08-19 02:07 | NUR ---
ROUNDED ON pt. RESTING WITH EYES CLOSED. RESPIRATIONS REGULAR, RATE = 20. BED ALARM ON.
--- NOTE | 2018-08-19 04:09 | NUR ---
ROUNDED ON pt. RESTING WITH EYES CLOSED, RESPIRATIONS REGULAR, RATE = 14. BED ALARM ON.
--- NOTE | 2018-08-19 05:18 | NUR ---
pt RESTED MOST OF SHIFT. ON 4 L O2 VIA NC. 2-3 PA. IV SL. TOLERATING REGULAR DIET. SCHEDULED PAIN MEDS. INCONTINENT OF URINE AND STOOL. DOES NOT USE CALL LIGHT BED ALARM ON.
--- NOTE | 2018-08-19 06:35 | NUR ---
ASSESSMENT AND VITALS DUE. pt COOPERATIVE UNTIL MOVED. BECAME COMBATIVE WHEN CHANGING LINENS. REQUIRED 3 PEOPLE. CONTINUED TO STATE "I JUST WANT TO GO HOME". NO CHANGES FROM PRIOR ASSESSMENT. BED ALARM ON.
--- NOTE | 2018-08-19 06:35 | NUR ---
VITALS AND I&OS DONE AND CHARTED. WITH THE HELP OF RN'S MITCHELL AND DARVIN WE DID A COMPLETE BED CHANGE. CHANGED HIS GOWN WELL. BEDSIDE TABLE AND CALL LIGHT IN REACH.
--- NOTE | 2018-08-19 09:28 | NUR ---
PT UNCOOPERATIVE WITH ROUTINE CARE DUTIES. PT BECOMES VERBALLY AND PHYSICALLY AGGRESSIVE WITH STAFF DURING ALL ROUTINE CARE DUTIES. PT WILL ASK FOR HELP TO URINATE, STAFF WILL PROCEED WITH HELPING PLACE URINAL AND HE WILL HIT STAFF. PT DOES NOT FOLLOW REDIRECTION COMMANDS. PT YELLS PROFANITIES AT STAFF WELL. PT YELLING "GET ME THE F.. OUT OF HERE, GOD, F.. YOU ALL". AT THIS TIME TO A STAFF MEMBER IN ROOM. BED IN LOW, ALARM INTACT AND PT CLOSE TO RN STATION. EDUCATION PROVIDED TO PT WITH EACH CARE AND TASK DONE.
--- NOTE | 2018-08-19 09:52 | NUR ---
PATIENT REFUSING VITAL SIGNS. CLAIMS HE WANTS TO GO HOME. HE YELLS AT STAFF AND WILL NOT LET US TAKE CARE OF HIM. HE TOLD ME TO LEAVE HIM ALONE.
--- NOTE | 2018-08-19 10:29 | NUR ---
Warm blanket provided, pt sleeping at this time.
--- NOTE | 2018-08-19 14:00 | NUR ---
PATIENT REFUSED VITALS AGAIN BUT I WAS ABLE TO GET THE PULSE OX ON HIS FINGER. DOCTOR DHEERAJ WAS IN THE ROOM DOING HER ROUNDS. NEVIN CAME IN THE ROOM TO HELP WITH THE SITUATION. WE REPOSITIONED HIM WITH GAMALIEL NORWOOD, GAMALIEL ROONEY, GARCIA GREGG, AND GARCIA JO. PATIENT WAS VERY COMBATIVE ANS SWINGING HIS ARMS AT THE STAFF.
--- NOTE | 2018-08-19 16:15 | NUR ---
PT NOW ON 6L OXYMASK. PT IS AT 92% OXYGEN LEVEL.
--- NOTE | 2018-08-19 16:31 | NUR ---
Pt in bed, hob elevated. Pt states his rib pain was improving. Attends is dry. Personal supplies and call light within reach. Pt close to RN station.
--- NOTE | 2018-08-19 18:19 | NUR ---
Pt confused. Pt requires min of 2 person assist with care duties. Sling to chair. Decreased appetite. Scheduled oxycodone for pain; may refuse/hold per parameters. Incont urine; attends in place. 6L oxygen via mask. 3L 02 chronic at home.
--- NOTE | 2018-08-19 19:30 | NUR ---
PT RESTING IN BED, PT'S PERSONAL MACHINE PULLER OVER IN ROOM WITH PT, PT ON 3LNC, NO SIGNS OF DISCOMFORT, NO REQUESTS AT THIS TIME, CALL LIGHT WITHIN REACH, FALL PRECAUTIONS IN PLACE.
--- NOTE | 2018-08-19 20:58 | NUR ---
PT RESTING IN BED, PERSONAL IC DESIGNER GATE ARRAYS AT BEDSIDE, PT VERY RELUCTANT TO TAKE HIS PO MEDICATIONS, WAS ABLE TO TAKE THEM WITH SIPS OF WATER AND PUDDING, PT RESISTANT TO CARE, YELLING PROFANITIES. PT SWINGING HIS ARMS AT STAFF AND ATTEMPTING TO SCRATCH. PT WAS ABLE TO BE COMFORTED BY HIS PERSONAL IC DESIGNER GATE ARRAYS BUT ONLY BRIEFLY. ASSESSMENT COMPLETE, PT ON 3LNC, NO C/O SOB/CP, PT GIVEN SCHEDULED PAIN MEDICATION, REPOSITIONED IN BED FOR COMFORT. LS COURSE IN BASES, PT ENCOURAGED TO COUGH/ DEEP BREATH. NO REQUESTS AT THIS TIME, CALL LIGHT WITHIN REACH. FALL PRECAUTIONS IN PLACE, BED ALARM ON.
--- NOTE | 2018-08-19 22:00 | NUR ---
PT REFUSED VITALS.
--- NOTE | 2018-08-19 22:40 | NUR ---
FRESH ICE WATER GIVEN AND CRYO FILLED.
--- NOTE | 2018-08-19 22:40 | NUR ---
PT RESTING IN BED, EYES CLOSED, BREATHS EVEN, UNLABORED, NO REQUESTS AT THIS TIME, CALL LIGHT WITHIN REACH, FALL PRECAUTIONS IN PLACE, BED ALARM ON, NO SIGNS OF DISCOMFORT OR RESTLESNESS.
--- NOTE | 2018-08-19 23:48 | NUR ---
PT RESTING IN BED, EYES CLOSED, BREATHS EVEN, UNLABORED, NO REQUESTS AT THIS TIME, ON 4LNC, NO SIGNS OF DISCOMFORT OR RESTLESNESS. CALL LIGHT WITHIN REACH, FALL PRECAUTIONS IN PLACE.
--- NOTE | 2018-08-20 | NUR ---
PT NOTED TO HAVE BEEN INCONTINENT, IN ROOM WITH GARCIA GOMEZ AND SUPERVISOR WHIPPED TOPPING ANGELA TO CHANGE THE PT'S ATTENDS WELL THE BEDDING. PT INCONTINENT OF LARGE VOID. NEW ATTENDS PLACED, NEW BEDDING APPLIED. PT DID NOT TOLERATE AT ALL, PT WAS VERY AGRESSIVE AND COMBATIVE TOWARDS STAFF, YELLING "LEAVE ME ALONE" WELL OTHER PROFANITY, WHILE SWINGING AMRS AND GRABBING AT STAFF. REASSURANCE WAS INEFFECTIVE AND THE PATIENT QUICKLY SETTLED AFTER STAFF HAD LEFT THE ROOM. PT CONTINUES TO REFUSE TO ALLOW STAFF TO PERFORM VITAL SIGNS ON HIM WELL. PT REPOSITIONED IN BED, NO REQUESTS AT THIS TIME, ON 4LNC, CALL LIGHT WITHIN REACH. FALL PRECAUTIONS IN PLACE. BED ALARM ON.
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
--- NOTE | 2018-08-20 01:00 | NUR ---
PT AWAKE REQUESTING A DRINK OF WATER, PT GIVEN SIPS OF WATER PER PT'S REQUEST, PT STATES THAT HE IS IN PAIN RELATED TO HIS RIBS, PRN PAIN MEDICATION GIVEN PER EMAR, PT TOLERATED TAKING PO MEDS WITH SIPS OF WATER. PT ATTEMPTED TO VOID WITH ASSISTANCE WITH URINAL AND WAS UNABLE TO DO SO. PT BECAME FRUSTRATED AT TIMES STATING "I JUST WANT TO GO HOME, IF I DONT GO HOME I AM GOING TO KILL MYSELF, I AM GOING TO COMMIT SUICIDE" DISCUSSED WITH PT THAT SUICIDE IS NOT ACCEPTABLE AND HIS SAFETY AND HEALTH IS MOST IMPORTANT, DISCUSSED PT'S STATEMENTS WITH CORE MAN WELL PT'S PREVIOUS NIGHT RN, AFTER DISCUSSION WE FEEL THE PT IS A LOW RISK, POLICY REVIEWED WITH CORE MAN WELL, WILL FOLLOW UP WITH CASE MANAGMENT REGARDING DISCHARGE PROCEDURES AND CONCERNS. PT RESTING IN BED, VISIBLE FROM NURSES STATION, FALL PRECAUTIONS IN PLACE, BED ALARM ON. NO FURTHER REQUESTS AT THIS TIME. VSS.
--- NOTE | 2018-08-20 02:19 | NUR ---
PT RESTING IN BED, EYES CLOSED, BREATHS EVEN, UNLABORED, ON 4LNC, NO SIGNS OF DISCOMFORT OR RESTLESNESS, CALL LIGHT WITHIN REACH, FALL PRECAUTIONS IN PLACE.
--- NOTE | 2018-08-20 04:54 | NUR ---
PT RESTING IN BED, EYES CLOSED, BREATHS EVEN, UNLABORED, NO REQUESTS AT THIS TIME, CALL LIGHT WITHIN REACH, FALL PRECAUTIONS IN PLACE, BED ALARM ON. 4LNC ON, NO SIGNS OF DISCOMFORT, OR RESTLESNESS.
--- NOTE | 2018-08-20 05:00 | NUR ---
PT CONFUSED, OCCASIONALLY AGITATED, 2-4 PERSON ASSIST WITH TURNING AND REPOSITIONING, PT INCONTINENT OF URINE AND STOOL, SCHEDULED OXYCODONE FOR PAIN, PT RECEIVED PRN NORCO X1 THIS SHIFT RELATED TO PAIN IN RIGHT RIBS, IV SL, DECREASED APPETITE, 4LNC, VSS.
--- NOTE | 2018-08-20 06:27 | NUR ---
PT'S ATTENDS CHANGED, PT WAS INCONTINENT OF URINE, NEW ATTENDS PLACED, PT REMAINS AGITATED RESISTIVE TO CARE YELLING "LEAVE ME ALONE DAMN IT", SWINGING HIS ARMS AT STAFF. 3 PERSON ASSIST NEEDED WITH CHANGING/REPOSITIONING PT, PT REMAINS IN BED, BED ALARM ON, NO REQUESTS AT THIS TIME, 4LNC ON, PT REFUSING FOR STAFF TO TAKE HIS VITAL SIGNS AT THIS TIME. NO C/O SOB/CP, CALL LIGHT WITHIN REACH. FALL PRECAUTIONS IN PLACE.
--- NOTE | 2018-08-20 08:42 | NUR ---
MORNING ASSESSMENT AND MEDICATIONS DUE. THIS RN TO BEDSIDE. PT IRRITABLE USING SWEAR WORDS ("GOD DAM YOU, FUCK YOU, SHIT"). PT NON COMPLIANT WITH ALL CARES AND MOST COMMANDS. ASSESSMENT DONE. LUNGS COURSE THROUGHOUT, TACHYPENEA NOTED, MD AWARE. FACES SCALE SHOWS 6/10 PAIN, SEE MAR FOR MEDICATION GIVEN. PTS CAREGIVER CALLED, WILL BE INTO SEE PT SOON. PT UPDATED. PT AGREES TO TAKE MEDICATIONS. MEDICATIONS GIVEN. PT ASKS FOR MILK BUT WHEN OFFERED PT THROWS MILK ACROSS ROOM. WHEN MILK HELD NEAR PTS MOUTH PT HITS THIS RN. PIV ASSESSED, DOES NOT FLUSH, INFLAMATION NOTED. NOTIFIED. PT REMAINS ON 4L O2 BY FL. PT STATES HE WOULD LIKE TO "PISS" IN THE URINAL. URINAL OFFRERED PT SWINGING AT THIS RN AND CNAS. BED RAILS UP. BED ALARM ON. CALL LIGHT WITHIN REACH. CURTAIN OPEN FOR EASY VIEWING FROM NURSES STATION.
--- NOTE | 2018-08-20 09:08 | NUR ---
PTS CAREGIVER, JEAN PIERRE, ARRIVED. JEAN PIERRE UPDATED ON PT CONDITION AND PLAN OF CARE. PT OFFERED AN ENSURE MILKSHAKE, PROVIDED REQUESTED. PIV DC'D PER MD ORDER. NO ADDITIONAL REQUESTS OR COMPLAINTS. BED RAILS UP. CALL LIGHT WITHIN REACH. CAREGIVER AT BEDSIDE.
--- NOTE | 2018-08-20 09:52 | NUR ---
PATIENT IN BED WATCHING TV. PATIENT GETTING AGGITATED WHILE DOING CARE. CALL LIGHT IN REACH. NO FURTHER NEEDS AT THIS TIME.
--- NOTE | 2018-08-20 10:20 | NUR ---
THIS RN TO ROOM TO CHECK ON PT. PT RESTING WITH EYES CLOSED, RR = 24 EVEN AND UNLABORED. FACES PAIN SCALE SHOWS 1/10. BED RAILS UP. CALL LIGHT WITHIN REACH. BED ALARM ON.
--- NOTE | 2018-08-20 10:37 | NUR ---
FRIEND ARRIVED TO VISIT PT. THIS RN TO BEDSIDE. WHEN ASKED IF HE NEEDS ANYTHING PT SHAKES HIS HEAD "NO." BED RAILS UP. CALL TONY WITHIN REACH, BED ALARM ON.
--- NOTE | 2018-08-20 11:27 | NUR ---
NOON ASSESSMENT DUE. PT RESTING WITH EYES CLOSED. PT AWAKENS TO MOVEMENT IN ROOM. ASSESSMENT DONE. LUNGS SOUNDS CONTINUE TO BE CORSE. RT TO BEDSIDE FOR BREATHING TX. PT JINNY LIFTED UP TO CHAIR, DEPENDS CHANGED. CHAIR ALARM ON, CURTAIN OPEN FOR EASY VIEWING FROM NURSES STATION, ENSURE MILKSHAKE PROVIDED. PT TAKES A FEW SIPS OF MILKSHAKE. CALL LIGHT WITHIN REACH.
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
--- NOTE | 2018-08-20 13:25 | NUR ---
PAIN MEDICATION DUE. PT UP TO CHAIR. FACES SCALE SHOWS 7/10 PAIN (SEE MAR FOR MEDICATION GIVEN). PT CONTINUES TO STATE "I WANT TO GO HOME" WITH ALL QUESTIONS ASKED. CHAIR ALARM ON. CALL LIGHT WITHIN REACH.
--- NOTE | 2018-08-20 14:09 | NUR ---
THIS RN TO ROOM TO CHECK ON PT. PT TELLS STORIES ABOUT HIS DAUGHTER, SON AND NIECE. FRESH ENSURE MILKSHAKE PROVIDED. PT TAKES 2 DRINKS OF MILKSHAKE. CHAIR ALARM ON. CALL LIGHT WITHIN REACH.
--- NOTE | 2018-08-20 14:27 | NUR ---
PATIENT SITTING IN CHAIR TALKING TO RN. DEPENDS CHANGED. CALL LIGHT IN REACH. NO FURTHER NEEDS AT THIS TIME.
--- NOTE | 2018-08-20 14:30 | NUR ---
DRY DEPENDS PLACED. PT TALKING ABOUT HIS CHILDREN AND MEMBERS OF HIS FAMILY AND WHERE THEY LIVE. VITALS TAKEN BY FLIGHT SURVEYOR. PT COMPLIANT WITH CARES AT THIS TIME. PT TAKES SIPS OF ENSURE MILKSHAKE. NO ADDITIONAL REQUESTS OR COMPLAINTS. CHAIR ALARM ON. CALL LIGHT WITHIN REACH. CURTAIN OPEN FOR EASY VIEWING FROM NURSES STATION.
--- NOTE | 2018-08-20 17:05 | NUR ---
AFTERNOON ASSESSMENT AND MEDICATIONS DUE. THIS RN TO BEDSIDE. PT UP TO CHAIR, DIAGNOSTIC RADIOLOGIST PRESENT WITH PTS CAT "GIANNA" FOR PET THERAPY. PT RESPONDING WELL TO PET THERAPY, SMILE ON PTS FACE. PT TALKING ABOUT GIANNA AND HIS FAMILY. PT COMPLIANT WITH ASSESSMENT. FACES SCALE SHOWS 4/10 PAIN (SEE MAR FOR MEDICATION GIVEN). DINNER ORDERED PER PT PREFERENCE. LUNGS CONTINUE TO HAVE CORSE LUNG SOUNDS, PT GARDING RIGHT SIDE. CHAIR ALARM ON. CALL LIGHT WITHIN REACH. CURTAIN OPEN FOR EASY VIEWING FROM NURSES STATION.
--- NOTE | 2018-08-20 17:10 | NUR ---
CALLED AND SPOKE WITH JEAN PIERRE WHO SAID SHE HAD JUST GOT DONE BRINGING HOME PT CAT FROM VISITING WITH PT. SHE STATED THAT PT REALLY ENJOYED VISITING WITH THE CAT. WE TALKED ABOUT WHILE HE IS HERE IT MIGHT BE A GOOD IDEA TO BRING UP SOMETHING FAMILIAR THAT IS NONE BREAKABLE AND HE COULDN'T HURT ANYONE WITH. THIS MAY COMFORT PT A BIT. CALLED HIS SON PABLO WHO IS LISTED PT NEXT OF KIN AT [phone] AND WAS GOING TO TALK WITH HIM AND HE STATED HE IS ON HIS WAY HERE AND WE COULD MEET AND TALK ABOUT HIS DAD. TALKED WITH DR BECKETT AND SHE IS MEETING WITH US ALSO.
--- NOTE | 2018-08-20 17:33 | NUR ---
CARE CONFERENCE MET WITH PT, PT SON PABLO AND HIS , DR BECKETT AND MYSELF. DISCUSSION WAS HAD ABOUT HOW THE PT IS DOING AND WHAT THE PLAN IS GOING FORWARD. PT IS VERY INSISTENT THAT HE GO HOME AND STATES HE IS NOT GOING TO A PENITENTIARY. PT VERY AGGITATED EVERY TIME ANYONE TOUCHES HIM OR TRIES TO DO ANYTHING TO HIM, SUCH CHANGE HIS ATTENDS OR MOVE HIM. DR BECKETT INFORMED THE SON THAT IT TOOK 5 PEOPLE TO MOVE HIM FROM THE BED TO THE CHAIR AND HE WAS VERY AGITATED THROUGHOUT THE PROCESS AND KICKED AT HER. SHE TOLD HIM THAT HE WOULD PROBABLY NEED TO GO TO A [facility] FACILITY HE IS NOT SUITED FOR A REGULAR SNF, BECAUSE OF HIS BEHAVIORS, SON AND CAREGIVER ARE GOING TO CHECK WITH [employer] TO SEE IF THEY CAN GET MORE CAREGIVING HOURS FOR HIM HE REALLY CAN'T BE HOME ALONE ANY MORE AND BE SAFE. THEY WILL LET ME KNOW WHAT THEY FIND OUT. WILL CONTINUE TO FOLLOW THIS PT.
--- NOTE | 2018-08-20 18:09 | NUR ---
THIS RN TO ROOM TO CHECK ON PT. PT VISITING WITH FAMILY. PT PLEASANT AND COMPLIANT WITH CARES. ENSURE MILKSHAKE PROVIDED. PT DENIES PAIN AND SHOWS FACES SCALE OF 1/10. CHAIR ALARM ON. CALL LIGHT WITHIN REACH.
--- NOTE | 2018-08-20 18:09 | NUR ---
PT HERE FOR PNEUMONIA. 2PA, FWW OR JINNY LIFT ASSIST. JINNY LIFT TO CHAIR TODAY. PT COMBATIVE IN MORNING HOURS BUT HAS BEEN PLEASENT THIS AFTERNOON. REGULAR DIET, MINIMAL INTAKE, ENSURE PROVIDED. PT REMAINS ON 4L O2 BY NC, LUNG SOUNDS COURSE BUT IMPROVED. SCHEDULED NEB TX, RT INVOLVED. SCHEDULE PAIN MEDICATION GIVEN. PT INCONTENENT, FREQUENT DEPENDS CHANGES. NO PIV AT THIS TIME. BED/CHAIR ALARM. PT DOES NOT USE CALL LIGHT.
--- NOTE | 2018-08-20 18:36 | NUR ---
PATIENT SITTING IN CHAIR. DEPENDS CHANGED. FAMILY IN ROOM. CALL LIGHT IN REACH. NO FURTHER NEEDS AT THIS TIME.
--- NOTE | 2018-08-20 19:13 | NUR ---
PT WAVING AT THIS RN. THIS RN TO ROOM. PT SAYS "I CAN'T GET ANYTHING FROM THIS." POINTING TO MILKSHAKE. ALL OF ENSURE MILKSHAKE FINISHED. PT STATES "PLEASE CAN I HAVE MORE." FRESH ENSURE MILKSHAKE PROVIDED. PT TAKES SIPS. GOWN READJUSTED. PT COMPLIANT WITH CARES. CHAIR ALARM ON. NO ADDIITONAL REQUESTS OR COMPLAINTS AT THIS TIME.
--- NOTE | 2018-08-20 19:17 | NUR ---
RECIEVED CHANGE OF SHIFT REPORT FROM ARIADNE ALSTON. PATIENT SITTING AWAKE IN BED WITH POSSESSIONS AND CALL LIGHT WITHIN REACH. WHITE BOARD UPDATED. NO MORE NEEDS AT THIS TIME.
--- NOTE | 2018-08-20 22:07 | NUR ---
ASSESSMENT COMPLETE. MEDICATION ADMINSTRATION ADMINISTER PER SEP ORDER. PATIENT REPORTS "6/10" PAIN IN RIGHT RIBS, PATIENT BECOMES AGGITATED WHEN NURSING STAFF APPROACHES RIGHT SIDE OF RIBS, SCHEDULED MEDICATION ADMINISTERED PER SEP ORDER. PAIN MEDICATED PATCH IN PLACE ON POSTERIOR RIGHT SIDE OF RIBS WHEN SHIFT BEGAN. PATIENT MOSTLY COMPLIANT WITH CARES AND EASILY CALMED DOWN WITH THERAPEUTIC COMMUNICATION, HOWEVER PATIENT BECAME AGGITATED WHEN NURSING STAFF DISCUSSED WITH PATIENT THE NEED TO PLACE ATTENDS AND CHANGE SOILED CHUCKS IN CHAIR. PATIENT CONFUSED TO MONTH AND DATE, REORIENT PRN. PATIENT DENIES CHEST PAIN OR DIFFICULTY BREATHING. PATIENT REPORTS SOB, PATIENT BELIEVES THIS IS FROM PAINFUL RIGHT RIBS. CALL LIGHT WITHIN REACH. CHAIR ALARM ON FOR SAFETY. NO MORE NEEDS AT THIS TIME.
--- NOTE | 2018-08-20 23:55 | NUR ---
ROUNDED ON PATIENT WITH CHARGE NURSE, STAFF NURSE AND EXPERIMENTAL ELECTRONICS DEVELOPER IN ROOM PREPARING PATIENT TO BE JINNY LIFTED TO BED, PATIENT WAS INCONTINENT AND NEEDED NEW ATTENDS AND CHUCKS PLACED. PATIENT USED STRONG LANGUAGE AND PROFANITY WITH NURSING STAFF WHILE TRANSFERING PATIENT TO BED. PATIENT INSTRUCTED BY STAFF NURSE THAT SUCH LANGUAGE IS NOT APPROPRIATE. PATIENT NOT VERY COMPLIANT WITH CARE AT THIS TIME. PATIENT SAFELY IN BED WITH NEW CHUCKS AND NEW ATTENDS IN PLACE. CHARGE NURSE AT BEDSIDE PROVIDING THERAPEUTIC COMMUNICATION TO PATIENT. BED ALARM ON FOR SAFTEY. NO MORE NEEDS AT THIS TIME.
--- NOTE | 2018-08-21 02:50 | NUR ---
rounded on patient resting in bed with eyes closed. respiratory rate is even and unlabored. call light within reach. bed alarm on for safety.
--- NOTE | 2018-08-21 04:32 | NUR ---
ROUNDED ON PATIENT RESTING IN BED WITH EYES CLOSED, RESPIRATORY RATE IS EVEN AND UNLABORED. BED ALARM ON FOR SAFETY.
--- NOTE | 2018-08-21 06:00 | NUR ---
ROUNDED ON PATIENT. PATIENT AGGITATED WHEN STAFF ATTEMPTED TO CHANGE PATIENT ATTENDS. NEW ATTENDS IN PLACE. PATIENT PHYSICALLY AND VERBALLY ABUSIVE TO STAFF WHEN CARES ARE PROVIDED. LIMITED ASSESSEMENT AND VITALS COMPLETED DUE TO PATIENT AGGITATION. BED ALARM ON FOR SAFETY.
--- NOTE | 2018-08-21 07:12 | NUR ---
REPORT RECEIVED FROM GAMALIEL JACQUES. PT RESTING IN BED. PT STATING "I WANT TO GO HOME." AND "LEAVE ME ALONE" BUT IS EASILY REDIRECTED WITH QUESTIONS ABOUT HIS CAT. PT DENIES REQUESTS OR COMLAINTS. BED RAILS UP. BED ALARM ON. O2 IN PLACE BY NC AT 5.5L.
--- NOTE | 2018-08-21 08:48 | NUR ---
PATIENT CALL RESIDENTIAL INSTALLER INTO ROOM AND REQUESTED TO USE URINAL. PATIENT ALLOWED RESIDENTIAL INSTALLER TO HELP WITH URINAL. PATIENT REQUESTED A BIBLE, BIBLE GIVEN TO PATIENT. CALL LIGHT IN REACH. NO FURTHER NEEDS AT THIS TIME.
--- NOTE | 2018-08-21 09:30 | NUR ---
MORNING ASSESSMENT AND MEDICATIONS DUE. THIS RN TO BEDSIDE. PT STATING "I WANT TO GO HOME, LEAVE ME ALONE." BUT IS OTHERWISE COMPLIANT WITH ASSESSMENT AND MEDICATION ADMINISTRATION. 3RN ASSIST TO CHANGE DEPENDS AND JINNY LIFT PT UP TO CHAIR. PT USING SWEAR WORDS AND SWINGS AT NURSES WHILE ATTEMPTING MOVEMENT BUT AFTER SETTLED PT IS CONTENT AND COMPLIANT WITH CARES. ASSESSMENT DONE. O2 WEAN TO 4L ATTEMPTED, PT UNABLE TO TOLEARATE. PT REMAINS ON 5L O2. VITALS TAKEN. ENSURE MILKSHAKE PROVIDED. FACES PAIN SCALE SHOWS 5/10, SEE MAR FOR MEDICATION GIVEN. PT LOOKING OUT WINDOW AND APPEARS CONTENT AT THIS TIME (NO GRIMACE, BODY RELAXED). CHAIR ALARM ON. CURTAIN OPEN FOR EASY VIEWING FROM NURSES STATION.
--- NOTE | 2018-08-21 10:33 | NUR ---
THIS RN TO ROOM TO CHECK ON PT. PT RESTING WITH EYES CLOSED, RR = 16 BPM. PT APPEARS RELAXED, NO PARTICULAR EXPRESSION. FACES PAIN SCALE SHOWS 1/10. CHAIR ALARM ON. WATER AND MILKSHAKE WITH IN REACH. CALL LIGHT WITHIN REACH.
--- NOTE | 2018-08-21 12:29 | NUR ---
NOON ASSESSMENT DUE. THIS RN TO BEDSIDE. PT STATES HE IS HAVING PAIN BUT CANNOT RATE PAIN. FACES SCALE SHOWS 4/10. SEE MAR FOR MEDICATION GIVEN. ASSESSMENT DONE. PT COMPLIANT WITH GENTEL CARES. PT REFUSES LUNCH. ENSURE MILKSHAKE PROVIDED. PT TAKES SIPS OF MILKSHAKE INDEPENDANTLY. PT REMAINS ON PT REMAINS ON 5L O2 BY NC. O2 SATURATION AT 94%. PT USING APPROPRIAT LANGUAGE "THAT'S ALL I NEED RIGHT NOW" AND NODS HEAD YES OR NO WHEN ASKED QUESTIONS. PT DESCRIBES WHERE HE LIVES AND STATES HE LIKES LIVING ALONE AND WANTS TO GO HOME ON HOSPICE LIKE HIS . PT UPDATED ON HIS PLAN OF CARE. PT VERBALIZES UNDERSTANDING. CHAIR ALARM ON. CALL LIGHT WITHIN REACH. PT STATES HE HAS NO ADDITIONAL REQUESTS OR COMPLAINTS AT THIS TIME.
--- NOTE | 2018-08-21 13:23 | NUR ---
MEDICATION DUE. THIS RN TO BEDSIDE. FACES PAIN SCALE SHOWS 4/10 PAIN. MEDICATION GIVEN. PT UP TO CHAIR. PT DECLINES FOOD AND DRINK. CHAIR ALARM ON. CALL LIGHT WITHIN REACH.
--- NOTE | 2018-08-21 14:21 | NUR ---
PATIENT IN CHAIR RESTING WITH EYES CLOSED. CALL LIGHT IN REACH. NO FURTHER NEEDS AT THIS TIME.
--- NOTE | 2018-08-21 15:45 | NUR ---
THIS RN TO ROOM TO CHECK ON PT. PT UP TO CHAIR, RT AT BEDSIDE GIVING BREATHING TREATMENT. PT SMILING AND MAKING JOKES. 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 NO ADDITIONAL REQUESTS OR COMPLAINTS. DINNER ORDERED FOR PT PER PT PREFERENCES. CALL LIGHT WITHIN REACH.
--- NOTE | 2018-08-21 17:56 | NUR ---
AFTERNOON ASSESSMENT AND MEDICATION DUE. THIS RN TO BEDSIDE. PT UP TO CHAIR. PT ASSISTED WITH EATING DINNER. PT NOTED TO CHOKE ON BROCCOLI AND CHICKEN. ITEMS REMOVED. BEDSIDE SWALLOW STUDY RECCOMENDED, CHARGE NURSE INFORMED. PT ASSISTED WITH DRINKING SOUP AND ENSURE MILKSHAKE. PT ABLE TO LIFT CUP OF SOUP WITH STRAW TO HIS OWN MOUTH AND DRINK. PT COMPLIANT WITH CARES. PT TALKS ABOUT FAMILY. PT REAMINS ON 5L O2 WITH SATURATIONS ABOVE 92%. DEPENDS CHANGED. CALL LIGHT WITHIN REACH. CHAIR ALARM ON.
--- NOTE | 2018-08-21 18:41 | NUR ---
PATIENT IN BED TALKING WITH VISITOR. CALL LIGHT IN REACH. NO FURTHER NEEDS AT THIS TIME.
--- NOTE | 2018-08-21 18:49 | NUR ---
THIS RN TO ROOM TO CHECK ON PT. PT APPEARS RELAXED AND COMFORTABLE IN BED. FAMILY AT BEDSIDE. FACES SCALE SHOWS 0/10. BED RAILS UP. BED ALARM ON. NO REQUESTS OR COMPLAINTS AT THIS TIME.
--- NOTE | 2018-08-21 18:50 | NUR ---
PT HERE FOR PNEUMONIA. JINNY LIFT TO CHAIR TODAY AND BACK TO BED. PT INCONTINANT, DEPENDS IN PLACE, FREQUENT CHANGES. PT TOLERATING REGULAR DIET. BED SIDE SWALLOW STUDY RECOMENDED. PT REMAINS ON 5L O2 THROUGH NC, SCEDULED NEBS. SCHEDULED PAIN MEDICATION FOR RIB FRACTURES. PT LESS COMBATIVE TODAY WITH MOST CARES, USING "PLEASE" AND "THANK YOU" AT TIMES. BED/CHAIR ALARM AT ALL TIMES. PT DOES NOT USE CALL LIGHT.
--- NOTE | 2018-08-21 19:25 | NUR ---
CHARGE ROUNDING DONE WITH DAY SHIFT RN AND [place] RN. PATIENT APPEARS TO BE RESTING PEACEFULLY IN BED. BED ALARM ON. CALL LIGHT IN REACH.
--- NOTE | 2018-08-21 19:27 | NUR ---
IN ROOM FOR REPORT, PT IS AWAKE IN BED. HE DENIES NEEDS AT THIS TIME. CALL LIGHT IS CLOSE. BED ALARM IS ON.
--- NOTE | 2018-08-21 21:48 | NUR ---
PT IS REFUSING MEDICATIONS AT THIS TIME AND SAYING "LEAVE ME ALONE".
--- NOTE | 2018-08-21 22:40 | NUR ---
IT TOOK 5 STAFF TO CHANGE PT'S ATTENDS AND REMOVE LIDODERM PATCH. PT IS AGGRESSIVE AND VERBALLY ABUSIVE. HE IS TRYING TO SWING AT STAFF AND TRYING TO PUT HIS FINGERS IN HIS THROAT. TRIED TO GET PT TO TAKE HIS PILLS BEFORE CHANGING HIM AND HE REFUSED AGAIN. DR BECKETT IS AWARE THAT PT DENIED MEDICATIONS. HIS BED ALARM IS ON, CALL LIGHT IS CLOSE, AND PT IS VISABLE FROM NURSES STATION. UNABLE TO ASSESS PT FULLY.
--- NOTE | 2018-08-21 23:40 | NUR ---
PT CALLED OUT THAT HE WANTED WATER, GUNNER ZELAYA WENT IN ROOM TO ASSIST HIM. PT CONTINUES TO YELL AT HER EVEN THOUGH HE ASKED FOR HELP. HE WAS ABLE TO VOID IN THE URNIAL.
--- NOTE | 2018-08-22 01:14 | NUR ---
PT IS RESTING WITH EYES CLOSED, RESPIRATIONS ARE EVEN AND NONLABORED ON 5LNC. CALL LIGHT IS CLOSE.
--- NOTE | 2018-08-22 02:27 | NUR ---
PT IS RESTING WITH EYES CLOSED, RR IS EVEN AND NONLABORED. CALL LIGHT IS CLOSE.
--- NOTE | 2018-08-22 04:00 | NUR ---
PT IS RESTING WITH EYES CLOSED, RR IS EVEN AND NONLABORED ON 5LNC. CALL LIGHT IS CLOSE.
--- NOTE | 2018-08-22 05:30 | NUR ---
PT CALLED OUT THAT HE WANTED WATER, BUT WHEN OFFERED WATER HE TRIED TO HIT THE CUP. PT WENT BACK AND FORTH A BIT WITH TELLING THIS RN TO GET OUT AND THEN ASKING FOR WATER AGAIN. PLACE CUP IN PT'S HAND AND HE WOULD NOT LIFT CUP TO HIS MOUTH. CUP IS BACK ON TABLE AT THIS TIME.
--- NOTE | 2018-08-22 07:20 | NUR ---
REPORT RECEIVED FROM GAMALIEL HAILE. PT RESTING SUPINE IN BED, EYES CLOSED AND RESPIRATIONS EVEN AND UNLABORED. CALL LIGHT AND H20 IN REACH AND BED ALARM ON.
--- NOTE | 2018-08-22 09:20 | NUR ---
Pt resting in bed with hob elevated and bed alarm on. pt remains on 5lpnc humidified. Meds prepared for administration but pt refuses. Pt states "my mouth is dry i need a drink" When pt was handed water pt makes a fist with his right hand and says "leave me alone!" Pt encouraged to drink some water and to take his medications so that he feels better and can heal faster by being able to cough nad deep breath without excessive pain. Pt states "Just leave me alone and let me !". Unable to perform full assessment due to pt swatting at this RN when full assessment was attempted. Bed alarm on. Pt closes eyes and appears to be resting comfortably.
--- NOTE | 2018-08-22 10:38 | NUR ---
PATIENT WAS CHANGED WITH THE HELP OF GARCIA MILLER, GARCIA JO, GAMALIEL LINTON, AND GAMALIEL ACEVEDO. WHILE BEING CHANGED PATIENT WAS KICKING AND PUNCHING AT THE STAFF. HE SAY HE DOESNT WANT TO BE HERE AND THAT HE WANTS TO . HE WILL NOT TAKE HIS MEDS OR DRINK ANYTHING WHEN WE OFFER. HE WILL NOT EAT ANY THING EITHER.
--- NOTE | 2018-08-22 10:45 | NUR ---
KEY HONEYCUTT,GARCIA, CYNDIE,RN AND THIS RN IN TO ASSIST WITH MD ASSESSMENT. PT BEGANS TO SWAT HIS ARMS AT MD AND STATES "LEAVE ME ALONE YOU BASTARDS!" PT'S ARMS AND LEGS BREIFLY HELD BY STAFF WHILE MD AUSCULTATES BREATH SOUNDS AND HT'S. PT SWATS AND KICKS DURING MD ASSESSMENT AND AFTER ASSESSMENT PT NOW RESTING IN BED CURSES SEVERAL MORE TIMES AND THEN APPEARS TO CALM DOWN. PT IS NOT IN RETRAINTS, RESTING IN BED CURSES SEVERAL MORE TIMES AND THEN APPEARS TO CALM DOWN. PT CONTINUES TO REFUSE ORAL PAIN MEDICATIONS. CALL LIGHT IN REACH, BED ALARM ON.
--- NOTE | 2018-08-22 12:19 | NUR ---
PATIENT TOOK A FEW DRINKS OF LIQUID BUT HE IS STILL NOT DRINKING. HE IS SAYING HE HAS TO URINATE BUT WHEN THE URINAL IS OFFERED HE YELLS AND SAYS "DONT TOUCH ME."
--- NOTE | 2018-08-22 12:30 | NUR ---
PT SLOUCHING DOWN IN BED TO LEFT SIDE. PT WAS ASSITED IN REPOSITIONING IN BED WITH 3PA. PT NOW APPEARS TO BE RESTING COMFORTABLY. BED ALARM BOOMSWING OPERATOR LIGHT AND H20 IN REACH. PT TOLERATES SMALL AMOUNT OF JUICE AT THIS TIME AND APPEARS TO NOW BE RESTING COMFORTABLY WITH RR EVEN AND UNLABORED AT 18 WITH INTERMITTANT NONPRODUCTIVE COARSE COUGH.
--- NOTE | 2018-08-22 13:25 | NUR ---
PT SHAKES HEAD SIDE TO SIDE WHEN ASKED IF HE IS IN ANY PAIN. PT REFUSES PRN PO PAIN MEDICATION. CALL LIGHT AND H20 IN REACH AND BED ALARM ON.
--- NOTE | 2018-08-22 14:15 | NUR ---
PT SEEN GRIMMACING, ASKED IF HE WAS IN PAIN AND IF HE WOULD LIKE PAIN PILL PT NODS HIS HEAD UP AND DOWN. PT GIVEN OXYCODONE 5MG PO PT OFFERED WATER TO SWALLOW PILL BUT PT YELLS "LEAVE ME THE HELL ALONE DAMMIT!" PT THEN RAISES TWO CLENCHED FISTS. O.T. AT BEDSIDE ATTEMPTING TO HAVE PT USE WASH CLOTH BUT PT REPEATS "LEAVE ME THE HELL ALONE!" PT LEFT IN HIGH FOWLERS POSITION, BED ALARM ON H20 AND CALL LIGHT IN REACH. PT REMAINS IN VIEW OF NURSING STATION.
--- NOTE | 2018-08-22 14:45 | NUR ---
PT ASSISTED IN CLEANING DEPENDS AND ASSISTED UP TO CHAIR. PT APPEARS AGITATED AND MULTIPLE STAFF WERE REQUIRED IN ORDER TO BLOCK PT'S KICKS AND LUNGES. PT NOW RESTING UP IN CHAIR, VSS, COARSE RHONCHI AUDIBLE WITHOUT STETHASCOPE. PT WAS ENCOURAGED TO DEEP BREATH, COUGH AND USE I.S. BUT PT JUST REPEATS "LEAVE ME ALONE!" LIMITED ASSESSMENT COMPLETED DUE TO PT'S AGITATION AND OUTBURSTS DURING INTERACTIONS WITH STAFF.
--- NOTE | 2018-08-22 16:30 | NUR ---
PT RESTING RECLINED IN CHAIR WITH EYES CLOSED AND RESPIRATIONS EVEN AND UNLABORED AT 18 ON 5LPNC OF HUMIDIFIED O2. PT SLOUCHING TO LEFT SIDE AND APPEARS TO BE UNCOMFORTABLE. PT ASSISTED IN REPOSITIONING WITH ASSISTANCE FROM GAMALIEL NORWOOD. ARMS FLOATED ON PILLOWS. PT YELLS "LEAVE ME ALONE!" REPEATEDLY DURING REPOSITIONING. PT NOW APPEARS TO HAVE CALMED DOWN AND IS RESTING COMFORTABLY. PT REMAINS IN VIEW OF NURSING STATION. CALL LIGHT AND H20 IN REACH.
--- NOTE | 2018-08-22 18:23 | NUR ---
UPDATED ON PT'S CONDITION AND OF DECREASED PO INTAKE. PER PT REQUEST NO NEW ORDERS AT THIS TIME.
--- NOTE | 2018-08-22 19:12 | NUR ---
CHARGE NURSE REPORT RECEIVED FROM DELORES MAYES IN BED, EYES CLOSED.
--- NOTE | 2018-08-22 19:30 | NUR ---
SHIFT REPORT RECEIVED FROM DAYSHIFT GAMALIEL ACEVEDO. PT RESTING IN BED, EYES CLOSED AND APPEARS COMFORTABLE. NO SIGNS OF RESPIRATORY DISTRESS NOTED, 5L NC IN PLACE. CALL LIGHT IN REACH, BED ALARM ON.
--- NOTE | 2018-08-22 20:08 | NUR ---
ASSESSMENT COMPLETE. SCHEDULED MEDICATIONS GIVEN (SEE EMAR). PT'S CAREGIVER IN ROOM, PT APPEARS IN BETTER SPIRITS AND MORE COMPLIANT WHEN CAREGIVER IS PRESENT. PT ON 5LNC, LUNG SOUNDS COURSE. NO RESPIRATORY DISTRESS NOTED. BED ALARM ON, CALL LIGHT IN REACH.
--- NOTE | 2018-08-23 00:06 | NUR ---
PT RESTING IN BED APPEARS COMFORTABLE. EYES CLOSED, RR EVEN AND UNLABORED. 5L NC IN PLACE. CALL LIGHT IN REACH, BED ALARM ON.
--- NOTE | 2018-08-23 01:37 | NUR ---
WITH THE HELP OF THREE RN'S AND 2 SHELTERED WORKSHOP WORKER'S WE CHANGED PT'S ATTEND INCONTINENT OF URINE. BED ALARM SET. BEDSIDE TABLE AND CALL LIGHT IN REACH.
--- NOTE | 2018-08-23 01:47 | NUR ---
PT INCONTINENT. WITH HELP FROM LAZARA RN, MITCHELL RN, BRENDA ZELAYA, AND JASON ZELAYA, PT ATTENDS CHANGED. RENE CARE COMPLETE. PT COMBATIVE PHYSICALLY AND ATTEMPTED TO BITE AND HIT NURSING STAFF. PT SETTLED DOWN QUICKLY FOLOWING ATTENDS CHANGE, BED ALRM ON. CALL LIGHT IN REACH.
--- NOTE | 2018-08-23 01:50 | NUR ---
ASSESSMENT COMPLETE. SCHEDULED MEDICATIONS GIVEN (SEE EMAR). PT'S CAREGIVER IN ROOM, PT APPEARS IN BETTER SPIRITS AND MORE COMPLIANT WHEN CAREGIVER IS PRESENT. PT ON 5LNC, LUNG SOUNDS COURSE. NO RESPIRATORY DISTRESS NOTED. BED ALRM ON, CALL LIGHT IN REACH.
--- NOTE | 2018-08-23 02:30 | NUR ---
THIS RN TO ANSWER CALL LIGHT. PT YELLING AT THIS RN STATING, "I HAVE TO TAKE A PISS". BEDSIDE URINAL POSITIONED, PT DID NOT VOID. PT BEGAN YELLING "WATER...WATER". WATER PROVIDED PER PT REQUEST. PT TOOK A FEW SIPS OF WATER, THEN QUICKLY BEGAN YELLING, "GET OUT OF HERE, JUST LEAVE ME ALONE". DRY ATTENDS IN PLACE, BED ALARM ON. CALL LIGHT IN REACH.
--- NOTE | 2018-08-23 03:37 | NUR ---
ASSESSMENT COMPLETE. NO NEW CONCERNS. THIS RN TO ANSWER CALL LIGHT. PT YELLING "WATER...WATER". WATER PROVIDED PER PT REQUEST. PT MILDLY IRRITATED W/ ASSESSMENT, BUT COMPLIANT. PT APPEARED IN HIGHER SPIRITS WHEN DISCUSSING RANCHING/FARMING WITH THIS RN. HOWEVER, AT ONE POINT, PT STATED, "I WANT TO ". PT DENIES FURTHER NEEDS, CALL LIGHT IN REACH.
--- NOTE | 2018-08-23 05:08 | NUR ---
NOTIFED BY MITCHELL RN THAT PT HAS TO HAVE BOWEL MOVEMENT. THIS RN IN ROOM. PT STATING, "I HAVE TO TAKE A SHIT". PT REFUSING TO ALLOW MITCHELL RN AND THIS RN TO TURN PT TO PLACE BEDPAN. BED ALARM IN REACH. BED ALARM ON.
--- NOTE | 2018-08-23 06:15 | NUR ---
FINAL DRESSING CUTTER ABLE TO DRAW LAB THIS AM, WITH THE ASSIST OF 2 STAFF. ONCE PT WAS TOLD WHO THE FINAL DRESSING CUTTER WAS, AND THAT HE MOST LIKELY HAS HAD HER DRAW HER LABS IN THE PAST, HE RELAXED AND ALLOWED THE DRAW. REQUESTED AND RECEIVED WATER. BEDALARM IN PLACE
--- NOTE | 2018-08-23 06:29 | NUR ---
PT SLEPT ON AND OFF THROUGHOUT THE NIGHT. PAIN APPEARED TO BE WELL CONTROLLED, NO REQUESTS OF PRN PAIN MEDICATION NOTED. PT AGITATED WITH ASSESSMENTS, BUT SCHEDULED MEDICATIONS WERE ADMINISTERED WITHOUT CONCERN. PT ON REGULAR DIET, NO NAUSEA THIS SHIFT. PT VOICED INTEREST IN HAVING BM, BUT WAS NOT COOPORATIVE IN ALLOWING STAFF TO PLACE BED NGUYỄN. PT INCONTINENT OF URINE. BED ALARM ON FOR SAFETY. PT CONTINUES TO VOICE DESIRE TO GO HOME OR .
--- NOTE | 2018-08-23 06:40 | NUR ---
SCHEDULED PATCH REMOVAL COMPLETE. HYDROGRAPHER OCTOBER UNABLE TO OBTAIN VS DUE TO PT'S AGITATION AND REFUSAL. DAYSHIFT GAMALIEL LAZARO AND DAYSHIFT SCIENCE CONSULTANTGAMALIEL WHITTINGTON AWARE. PT ATTENDS DRY. CALL LIGHT IN REACH, BED ALARM ON.
--- NOTE | 2018-08-23 08:00 | NUR ---
RECEIVED REPORT AT 0700, FOUND PT IN BED AWAKE AND STATING THAT HE WANTS TO BE LEFT ALONE. BREATHSOUNDS ARE HEARD FROM THE ENTRACE OF THE ROOM.
--- NOTE | 2018-08-23 10:00 | NUR ---
V/S ARE WDL EXCEPT RR AT 24. PT AT FIRST LET ME GIVE HIM HIS MORING MEDS AND THEN REFUSED THOUGH. GABAPENTIN AND SENNA SO FAR WERE NOT GIVEN. WILL RETURN IT IN A FEW MINUTES. PT ALSO REFUSED HIS ASSESSMENT AT THIS TIME. WILL TRY IT AGAIN LATER. PT WAS ABLE HOWEVER TO VERBALIZE THAT HE NEEDED TO VOID WITHOUT HAVING AN INCONT. EPISODE. WILL CONTINUE TO MONITOR.
--- NOTE | 2018-08-23 11:59 | NUR ---
PT WANTED TO USE THE BSC FOR A BM. DARLEEN FROM PT AND TWO RN'S WERE UNABLE TO HELP THIS PT TO STAND UP AND OR PIVOT TO BSC. PT AT THIS TIME IS BACK IN BED STILL REFUSING THE BED NGUYỄN. PT STATED AGAIN THAT HE WANTS TO BE LEFT ALONE. WILL TRY AGAIN IN A LITTLE WHILE.
--- NOTE | 2018-08-23 13:00 | NUR ---
PT HAS BEEN ON THE BED NGUYỄN FOR ABOUT 20 MINUTES WITH NO SUCCESS. WILL TAKE HIM OFF VERY SHORTLY. PT TRY WITH PHYSICAL THERAPY TO SIT PT AT EDGE OF BED LATER THIS AFTERNOON.
--- NOTE | 2018-08-23 13:29 | NUR ---
PT IS REFUSING HIS SECOND ASSESSMENT AT THIS TIME. PT ONCE AGAIN WANTS TO BE LEFT ALONE. PO INTAKE AND URINE OUTPUT ARE INADEQUATE. MD MCKEE IS AWARE.
--- NOTE | 2018-08-23 14:52 | NUR ---
PT AT THIS TIME REFUSES 1500 MEDICATIONS AND IS STILL REFUSING THE ASSESSMENT. WILL KEEP TRYING.
--- NOTE | 2018-08-23 17:45 | NUR ---
THROUGHOUT THE DAY PT AT TIMES REFUSED MEDICATIONS, ASSESSMENTS, TREATMENTS ETC. AT TIMES HE WOULD BE AGREEABLE. PT AT THIS TIME IS UNABLE TO STAND UP DUE TO WEAKNESS. PT ALSO HAS RECEIVED A SUPP AND A FLEET ENEMA SINCE HE HAS BEEN STATING THAT HE HAS THE URGE FOR A BM BUT ALL DAY HAD NO SUCCESS ON HIS OWN. ALL LOBES WERE COARSE THIS MORNING, THIS AFTERNOON THEY WERE DIMINISHED. PT HOWEVER DID NOT PUT FORTH ANY EFFORT IN REGARDS TO DEEP BREATHING. V/S ARE WDL OVERALL. PT HAS BEEN DENYING PAIN ALL DAY. CAREGIVER AT BEDSIDE NOW. PT SEEMS IN BETTER SPIRITS AT THIS TIME. PT IS EATING SOME FRUIT.
--- NOTE | 2018-08-23 19:04 | NUR ---
PATIENT IN BED, RN IN ROOM. FRESH WATER GIVEN. RN WANTED TO WAIT ON VITALS TO LET PATIENT STAY CALM WHILE FAMILY WAS IN ROOM. CALL LIGHT IN REACH. NO FURTHER NEEDS AT THIS TIME.
--- NOTE | 2018-08-23 19:05 | NUR ---
SHIFT REPORT RECEIVED FROM DAYSNEFT GAMALIEL LAZARO. PT AWAKE, RR EVEN AND UNLABORED, 5LNC NOTED. PT APPEARS COMFORTABLE, WATER AT BEDSIDE PER PT REQUEST FROM ANTIQUE JEWELRY REPAIRER. CALL LIGHT IN REACH, BED ALARM ON.
--- NOTE | 2018-08-23 20:05 | NUR ---
ASSESSMENT COMPLETE. PT A/O TO SELF, PLACE, AND SURROUNDS. DIAGRAMMER AND SEAMER JEAN PIERRE IN ROOM WITH PT. PT IN GOOD SPIRITS AT THIS TIME AND IS COMPLIANT. SCHEDULED MEDICATIONS GIVEN, SEE EMAR. SCHEDULED MELATONIN HELD AT THIS TIME UNTIL PT IS READY FOR BED, PER PT REQUEST. VSS. PT ON 5LNC, LUNG SOUNDS COURSE THROUGHOUT. PT DENIES PAIN. DRY ATTENDS IN PLACE, PT STATED, "I HAVE TO PEE". BEDSIDE URINAL IN PLACE WITH HELP FROM THIS RN, PT ATTEMPTING TO VOID. PT DENIES ADDITIONAL NEEDS, BED ALARM ON. CALL LIGHT IN REACH.
--- NOTE | 2018-08-23 22:45 | NUR ---
PT RESTING IN BED, RR EVEN AND UNLABORED. PT APPEARS COMFORTABLE, 5LNC IN PLACE. CALL LIGHT IN REACH, BED ALARM ON.
--- NOTE | 2018-08-24 00:05 | NUR ---
THIS RN IN ROOM TO COMPLETE ORDER FOR SOAPSUDS ENEMA. UNDERWRITING ACCOUNT REPRESENTATIVE ASHISH, SHOE FOLDER LAZARA, AND BSW'S JASON AND BRENDA IN ROOM FOR ASSISTANCE. PT AGITATED WITH PROCEDURE, BUT OVERALL TOLERATED PROCEDURE WELL. 400 MLS OF TOTAL FLUID FLOWED TO GRAVITY IN SMALL PORTIONS. ENEMA UNSUCCESSFULL AT THIS TIME, NO BM PRODUCED. WILL CONTINUE TO MONITOR. PT REMIANED ON 5L NC FOR ENTIRETY OF PROCEDURE, O2 SAT REMAINED BETWEEN 87-91%. DRY ATTENDS IN PLACE AT THIS TIME. BED ALARM ON, CALL LIGHT IN REACH.
--- NOTE | 2018-08-24 03:08 | NUR ---
PT RESTING IN BED, APPEARS COMFORTABLE. EYES CLOSED, RR EVEN AND UNLABORED. 5L NC IN PLACE. CALL LIGHT IN REACH, BED ALARM ON.
--- NOTE | 2018-08-24 03:29 | NUR ---
PT INCONTINENT OF STOOL AND VERY SMALL BM SMEAR. PT AGITATED WITH ATTENDS CHANGE AND ATTMEPTED TO BITE NURSING STAFF. NEW ATTENDS IN PLACE, NO FURTHER NEEDS. HOB ELEVATED. 5LNC IN PLACE. CALL LIGHT IN REACH, BED ALARM ON.
--- NOTE | 2018-08-24 03:34 | NUR ---
WITH THE HELP OF RN'S LAZARA AND QUENTIN, GARCIA GUTIERREZ AND I WE CHANGED PT'S ATTENDS AND GOWN DUE TO INCONTINENCE OF URINE. BEDSIDE TABLE AND CALL LIGHT IN REACH. BED ALARM SET.
--- NOTE | 2018-08-24 04:30 | NUR ---
ASSESSMENT COMPLETE. NO NEW CONCERNS. PT REMAINS AGITATED WITH NURSING STAFF. 5LNC NOTED, LUNG SOUNDS COURSE THROUGHOUT. DRY ATTENDS IN PLACE. CALL LIGHT IN REACH.
--- NOTE | 2018-08-24 06:00 | NUR ---
VS AND I&O'S COLLECTED. PT VERY AGITATED WITH BP CUFF, UNABLE TO OBTAIN ACCURATE BP. ENGINEER FIRST ASSISTANT LAZARA AWARE. CALL LIGHT IN REACH, BED ALARM ON.
--- NOTE | 2018-08-24 06:28 | NUR ---
PT HAD AN OKAY NIGHT. PT A/O TO PERSON, PLACE, AND PARTIALLY TO EVENTS. PT CONTINUES TO REMAIN AGITATED AND AT TIMES COMBATIVE W/ NURSING STAFF. RECEIVED SOAPSUDS ENEMA AROUND 2344, PT HAS HAD 2 SMALL SMEAR BOWEL MOVEMENTS SINCE. PT REMAINS INCONTINENT, REQUESTED TO USE URINAL THROUGHOUT NIGHT, BUT REMAINED INCONTINENT. PT ON 5L NC, LUNG SOUNDS COURSE/DIMINISHED. PT ON REGULAR DIET, BOWEL TONES ACTIVE, NO NAUSEA THIS SHIFT.
--- NOTE | 2018-08-24 07:32 | NUR ---
PATIENT RESTING IN BED. PATIENT'S BREAKFAST ORDERED
--- NOTE | 2018-08-24 08:00 | NUR ---
RECEIVED REPORT AT 0700, FOUND PT IN BED NO COOPERATIVE WITH STAFF. A NEW IV SITE WAS STARTED DUE TO ABNORMAL LABS. PT DID WELL OVERALL. WILL AWAIT MD ORDERS FOR TREATMENT.
--- NOTE | 2018-08-24 09:23 | NUR ---
PT AT THIS TIME IS REFUSING HIS MORNING MEDICATIONS AND A MORNING ASSESSMENT. LR BOLUS IS RUNNING. WILL TRY AGAIN IN A LITTLE WHILE.
--- NOTE | 2018-08-24 10:55 | NUR ---
PATIENT USING BASE COMMODE. THREE PERSON ASSISTING. PATIENT BACKS TO CHAIR. VITAL SIGNS DONE BY RN. I&O DONE. CALL LIGHT WITHIN REACH. NO OTHER NEEDS AT THIS TIME
--- NOTE | 2018-08-24 11:15 | NUR ---
EKG DONE SHOWED A-FIB W/RVR. WILL CONTINUE TO MONITOR.
--- NOTE | 2018-08-24 11:35 | NUR ---
CARE CONFERENCE DR MCKEE, MYSELF, INTERNETWORKING TECHNICIAN, CAREGIVER NICHELLE AND PATIENT. DR MCKEE DISCUSSING PATIENTS CONDITION, ACUTE CHANGES, DISCHARGE PLAN. PATIENT HAS BEEN REFUSING TO LET STAFF DO CARE SUCH DRAW LABS, VITALS, ETC. PATIENT YELLING STATING HE WANTS TO GO HOME. PATIENT STATING HE JUST WANTS TO BE LEFT ALONE. DR MCKEE EXPLAINING HIS CHANGE IN CONDITION AND WHY WE ARE TRYING TO RUN MORE TESTS. PATIENT STATES "YOU BETTER NOT LET ME CATCH YOU ON THE STREET, I'LL SHOOT YOU". CAREGIVER NICHELLE TRYING TO TALK WITH PATIENT ABOUT HIS YELLING AND THREATENING. PATIENT STATING "I DON'T CARE, I'M GOING HOME AND I'M NOT LISTENING TO THEIR CRAP". PATIENTS HR UP IN 120'-140'S. CAREGIVER NICHELLE STATES THERE IS NO WAY THEY CAN LIFT HIM AND TAKE HIM HOME. IT WAS DECIDED TO CALL PATIENTS ABELARDO SHAH [phone]. I LEFT A MESSAGE FOR CALL BACK.
--- NOTE | 2018-08-24 12:00 | NUR ---
AT AROUND 1000 PT VERY MUCH INSISTED THAT HE WANTED TO USE THE BSC FOR A BM. PT ACTUALLY WAS CLIMBING OUT OF BED. WITH THE HELP OF 2 OTHER PERSONEL WE WERE ABLE TO GET HIM TO THE BS. PT WAS VERY WEAK HOWEVER. PT THEN DEMANDED TO BE SEATED IN THE CHAIR. WE PIVOTED HIM TO THE CHAIR. AT THAT TIME PT STATED THAT HE FEELS LIKE PASSING OUT. V/S WERE TAKEN. O2 SATS WERE IN THE 70'S TO START WITH, BP 99/52 (64), HR WAS ALL OVER THE PLACE FORM 40'S-140'S. MD MCKEE WAS NOTIFIED SINCE EVEN AFTER A FEW MINUTES OF REST HIS HR DID NOT NORMALIZE AT ALL. PT WAS ALSO PUT ON OXY MASK AT 10L AT FIRST IN ORDER TO STAY >90%. LUNG SOUNDED VERY COURSE. THERE WAS A DISCREPANCY IN THE READINGS OF THE V/S-MACHINES. MANUAL SBP WAS 82 AT FIRST BY 1200 IT WAS 90/50. TELE SHOWES HR ANYWEHRE FROM 115-135 AT THIS TIME. PT ALSO STATED THAT HE WISHES TO GO HOME AND BE LEFT ALONE WITHOUT MEDICAL TREATMENT. I DO NOT THINK THAT PT CAN CLEARLY UNDERSTAND THE CONSEQUENCES TO THIS REQUEST. HIS CARETAKEERS ARE NOT ABLE TO LIFT HIM AT ALL. FAMILY HAS BEEN NOTIFIED AND WILL WORK TOWARD A SOLUTION. WILL CONTINUE HIS V/S UNTIL FAMILY WILL CONTACT MD MCKEE IN [facility] TO PLAN GOING FORWARD
--- NOTE | 2018-08-24 13:09 | NUR ---
DR MCKEE STATES HE SPOKE WITH SON PABLO. THEY ARE GOING TO DISCUSS WITH FAMILY HOW TO PROCEED WITH PATIENTS WISHES.
--- NOTE | 2018-08-24 14:29 | NUR ---
PATIENT USING A JINNY TO CLEAN UP HIS BUTTOCKS. FAMILY AND RN IN ROOM. FOUR PERSON ASSISTING. PATIENT BACKS TO BED. VITAL SIGNS AND I&O DONE. CALL LIGHT WITHIN REACH. ICE WATER GIVEN. NO OTHER NEEDS AT THIS TIME
--- NOTE | 2018-08-24 15:08 | NUR ---
PT HAS BEEN BACK FROM CT FOR ABOUT AN HOUR NOW. PT AT THIS TIME IS IN BED. WILL CONTINUE TO MONITOR. NO CHANGE IN STATUS AT THIS TIME.
--- NOTE | 2018-08-24 17:03 | EKG ---
[facility] [address] [facility] [place] [address] Signed Atrial fibrillation with rapid ventricular response Left axis deviation Inferior-posterior infarct , age undetermined Abnormal ECG When compared with ECG of 13-AUG-2018 13:26, Atrial fibrillation has replaced Sinus rhythm Inferior-posterior infarct is now present ST now depressed in Inferior leads T wave inversion no longer evident in Anterior leads Confirmed by NIC MCKEE DO ([id number]) on 08/24/2018 5:03:15 PM Electronically Signed By: NIC MCKEE DO 08/24/18 1703 PATIENT NAME: KAMRAN ARAGON Electrocardiogram DATE OF : [birth year] PHYSICIAN: NIC MCKEE DO REPORT #: [id number] REPORT IS CONFIDENTIAL AND NOT TO BE RELEASED WITHOUT AUTHORIZATION
--- NOTE | 2018-08-24 17:36 | NUR ---
PT OVERALL WAS HIS USUAL SELF THIS MORNING. AT AROUND 1000 PT TRIED TO CLIMB OUT BED BECAUSE HE WANTED TO USE THE BSC FOR A BM. WE AGREED AND PIVOTED HIM TO THE BS. PT THEN STATED THAT HE WAS FEELING LIKE PASSING OUT. PT WAS VISIBLY SOB. HR WAS IN THE 40'S-130'S AND PT HAD TO BE PUT ON 10L OXY MASK. MD MCKEE WAS NOTIEFIED AND AND EKG WAS ORDERED WHICH SHOWED A-FIB W/RVR. PT AT THAT TIME WAS CLOSELY MONITORED AND AT AROUND 1300 OR SO, HIS HR WAS IN THE LOW 100 AND O2 SATS ALSO IMPROVED. BLOO-CULTURES, URINE CULTURES, CHEST X-RAY AND ABD CT-SCAN WERE DONE. NO OTHER MEASURES WERE TAKEN. PT ALSO HAD URINARY RETENTION PRESENT AND A NOLAND WAS INSERTED AT 1650. NO NEW ISSUES NOTED SO FAR BUT WILL CONTINUE TO MONITOR.
--- NOTE | 2018-08-24 18:09 | NUR ---
PATIENT RESTING IN BED. VITAL SIGNS DONE EXCEPT BLOOD PRESSURE BECAUSE PATIENT REFUSED. LOW LEVEL OF OXYGEN. RN NOTIFIED. I&O DONE. CALL LIGHT WITHIN REACH. NO OTHER NEEDS AT THIS TIME
--- NOTE | 2018-08-24 21:01 | NUR ---
COOP WITH ASSESSMENT, DR MCKEE HERE IN ROOM TALKING TO FAMILY MEMBER. PT EATING SMALL BITES
--- NOTE | 2018-08-24 21:24 | NUR ---
PT RESTING IN BED, IS IN HAND. PT DENIES NEEDS AT THIS TIME. CALL LIGHT IN REACH. ROOM IN VIEW OF RN STATION.
--- NOTE | 2018-08-25 01:33 | NUR ---
resting, eyes closed, O2 in place, no resp distress. f/c patent
--- NOTE | 2018-08-25 02:53 | NUR ---
resting, no distress, O2 in place
--- NOTE | 2018-08-25 04:46 | NUR ---
hob elevated, O2 nc 5L in place, no resp distress. Continues to have moist cough. Resting, eyes closed. IVF infusing w/o problems, call light at bedside, f/c patent, draining dark yellow urine
--- NOTE | 2018-08-25 04:53 | NUR ---
PT RESTING, O2 5L NC IN PLACE, WAS COOPERATIVE WITH INITIAL VITALS AND ASSESSMENT. LUNGS CONTINUE TO BE DIM AT BASES AND RHONCHI, MOIST PRODUCTIVE COUGH PRESENT. HOB ELEVATED. PT DECLINED TO HAVE RENE AREA ASSESSED BY THIS RN OR TO BE TURNED. ATE 25% DINNER AND MEDS WERE GIVEN IN PUDING, WHICH HE TOOK W/O PROBLEMS, HE HAS BEEN EASY TO REDIRECT THIS SHIFT. F/C PATENT. PT HAS HAD LOW INTAKE AND DECLINED TO DRINK ENSURE, HAS TOLERATED SMALL SIPS OF WATER. SCDS, HEEL PROTECTORS IN PLACE, IVF PATENT. NO C/O PAIN OR CP AT THIS TIME, HEALING BRUISING AREAS OVER L SIDE.
--- NOTE | 2018-08-25 06:58 | NUR ---
PT VERBALLY UPSET, DECLINED TO HAVE LIDODERM PATCH REMOVED.
--- NOTE | 2018-08-25 08:00 | NUR ---
RECEIVED REPORT AT 0700, FOUND PT IN BED SOMEWHAT AWAKE. PT TOLD STAFF TO LEAVE HIM ALONE.
--- NOTE | 2018-08-25 10:00 | NUR ---
V/S ARE WDL SO FAR, MINNIE IS CLEAR, LLL IS COARSE, ALL RIGHT LOBES HAVE RONCHI PRESENT. ABD SOUNDS ARE ACTIVE, ABD DISTENTION IS LESS THAN YESTERDAY. BILAT LOWER LEG EDEMA +1 IS UNCHANGED. PT IS RESTING AT THIS TIME. URINE OUTPUT IS NOT ADEQUATE THIS MORNING. WILL CONTINUE TO MONITOR.
--- NOTE | 2018-08-25 12:29 | NUR ---
PT AT THIS TIME IS UP AND AWAKE IN BED EATING FRIED ONIONS. PT WAS ABLE TO SIT UP AT BEDSIDE ON HIS OWN FOR ABOUT 2MINUTES BEFORE NEEDING TO LAY BACK DOWN. FAMILY IS IN ROOM. PT HAS BEEN VERY COOPERATIVE DURING THIS LAST ENCOUNTER. WILL CONTINUE TO MONITOR.
--- NOTE | 2018-08-25 13:28 | NUR ---
PT IS SITTING UP IN CHAIR. PHYSICAL THERAPY ASSISTED WITH STAND AND PIVOT. PT TOLERATED THAT WELL. 5MG OXY GIVEN FOR RIB PAIN 10/17. NO NEW CONCERNS NOTED AT THIS TIME.
--- NOTE | 2018-08-25 14:30 | NUR ---
D/C IS DONE PT IS WAITING FOR TO PICK HIM UP.
--- NOTE | 2018-08-25 16:30 | NUR ---
PER RESP. THERAPY PT HAS BEEN ON RA AND MAINTAINING O2 SATS ADEQUATELY. WILL CONTINUE TO MONITOR. NO NEW CONCERNS NOTED AT THIS TIME.
--- NOTE | 2018-08-25 18:05 | NUR ---
PT HAD A MUCH BETTER DAY TODAY. SO FAR PT HAD A BM X1 THIS SHIFT. PT HAS BEEN COOPERATIVE WITH EVERYTHING AND APPROPRIATE WITH STAFF. PT STATED THAT HE FEELS MUCH BETTER. PT HAS BEEN TRANSFERED TO CHAIR WITH STAND AN PIVOT WITH HELP OF PHYS. THERAPY. PT SINCE LATER THIS AFTERNOON HAS BEEN ON RA AND MAINTAINING O2 SATS >94%. URINE OUTPUT IS NOT ADEQUATE STILL AND MD MCKEE WAS INFORMED EARLIER AND WILL BE INFORMED AGAIN. PT ATE 50% OF LUNCH AND FLUID PO INTAKE HAS ALSO INCRESED SOME. WILL CONTINUE TO MONITOR URINE OUTPUT. NO NEW OR OTHER CONCERNS NOTED SO FAR THIS SHIFT.
--- NOTE | 2018-08-26 00:57 | NUR ---
PT IN BED RESTING WITH EYES CLOSED. NO SIGNS OF DISTRESS OR DISCOMFORT. iv INTACT AND RUNNING @125. CALL LIGHT IN REACH.
--- NOTE | 2018-08-26 04:39 | NUR ---
1 BM THIS SHIFT. DURRING CHANGE PT COMBATIVE AND YELLING VERBALLY INAPPROPRIATE. MAINTAING O2 SAT ON RA. LR@125 IN LEFT FA. NOLAND OUTPUT 650 DURRING SHIFT.
--- NOTE | 2018-08-26 08:00 | NUR ---
RECEIVED REPORT AT 0700, FOUND PT IN BED SLEEPING.
--- NOTE | 2018-08-26 08:04 | NUR ---
patient in bed, asked patient if he wanted to eat breakfast, patient said no, will update nurse
--- NOTE | 2018-08-26 10:00 | NUR ---
V/S ARE WDL OVERALL. PT IS AAOX4, PT IS IN GOOD SPIRITS OVERALL. UPPER LOBES HAD SOME INSPIRATORY WHEEZING PRESENT. LOWER LOBES CLEAR BUT DIMINISHED. PT IS CLEARING HIS SECRETIONS WELL THIS MORNING. ABD SOUNDS PRESENT AND SOFT TO TOUCH. +1 BILATERAL LEG EDEMA STILL PRESENT. OVERALL STRENGTH +4. NO NEW CONCERNS SO FAR. WILL GET HIM INTO CHAIR WITH PHYSICAL THERAPY.
--- NOTE | 2018-08-26 12:00 | NUR ---
PT IS UP IN CHAIR. NO NEW CONCERNS AT THIS TIME.
--- NOTE | 2018-08-26 14:00 | NUR ---
PT IS BACK IN CHAIR. PT HAD BM'S X3 SO FAR THIS SHIFT. TALKED TO MD MCKEE AND WE AGREED TO HOLD LAXATIVES FOR NOW. PT IS AAOX4 AND PAIN IS WELL CONTOLLED WIHT OXY 5MG WHEN PT IS BEING MOVED. PHYS. THERAPY AND 2 HUNTER SKIN DIVER DID A STAND AND PIVOT TO [facility] AND TO THE CHAIR. PT IS STILL VERY DECONDITIONED BUT STRONGER THAN YESTERDAY. ALL LOBES ARE CLEAR AND PT IS STILL CLEARING HIS SECRETIONS VERY WELL. V/S ARE WDL SO FAR. PO INTAKE HAS ALSO INCREASED SOME. NO NEW CONCERNS NOTED SO FAR.
--- NOTE | 2018-08-26 16:00 | NUR ---
PT IS RESTING IN BED AT THIS TIME.
--- NOTE | 2018-08-26 17:32 | NUR ---
PT DID A STAND AND PIVOT X3 TODAY. IT WAS STILL VERY EXHAUSTING TO PT BUT PT IS A LITTLE STRONGER THAN YESTERDAY. PO INTAKE IS ALSO BETTER TODAY. PT IS ONLY DISORIENTED TO DATE. LAXATIVES WILL BE HELD DUE TO FREQUENCY IN BM'S. ALL LOBES ARE CLEAR, PT IS CLEARING SECRETIONS WELL. V/S OVERALL WDL. OVERALL STRENGTH +4. NO NEW CONCERNS SO FAR.
--- NOTE | 2018-08-26 17:46 | NUR ---
PATEINT IN BED, ASSISTED WITH EATING HIS DINNER, HE SAYS HE IS FEELING BETTER AND APPRECIATES HELPING HIM EAT
--- NOTE | 2018-08-26 19:08 | NUR ---
CHARGE NURSE REPORT RECEIVED FROM SUGEY. PT SMILING, VISITING WITH JEAN PIERRE HENDRIXJESUSVASQUEZ, HIS PRIVATE CAREGIVER FROM [facility]. PT GREETED THIS NURSE, HAS NO COMPLAINTS, INFACT WAS PLEASANT.
--- NOTE | 2018-08-26 22:00 | NUR ---
awake, alert and oriented, coop with assessments and vitals, and repositioning of left side. decreased bruising left side chest, arms. 2+ edema ankles and feet. sl and ivf site patent. f/c patent, dark yellow urine 225 cc drained. pt took meds, a snack and 1/2 ensure container w/o problems, contineues to have moist non productive at thist ynes cough. hob elevated to his comfort. no requests. medicated with scheduled tylenol. call light at hands reach
--- NOTE | 2018-08-27 01:08 | NUR ---
RESTING, HOB ELEVATED TO HIS COMFORT, ON ROOM AIR. CALL LIGHT AT BEDSIDE, NO DISTRESS
--- NOTE | 2018-08-27 02:49 | NUR ---
RESTING, NO DISTRESS, HOB ELEVATED TO HIS COMFORT, NO DISTRESS, ONROOM AIR. CALL LIGHT AT BEDSIDE.
--- NOTE | 2018-08-27 03:14 | NUR ---
MEDICATED WITH OXYCONTIN 5MG PO C/O 5/10 R RIB AREA AND NECK PAIN, REPOSITIONED IN BED, COOPERATIVE. PT USED CALL LIHGT. NO OTHER C/O. CALL LIGJT AT BEDSIDE
--- NOTE | 2018-08-27 04:58 | NUR ---
PT RESTING, ON ROOM AIR, NO DISTRESS. LUNGS COARSE, OCASSIONAL MOIST NON PRODUCTIVE COUGH STILL PRESENT. HOB ELEVATED TO PTS COMFORT AND REQUETS. HAS TOLERATED FLUIDS AND ENSURE WELL. PT WAS RECEPTIVE TO THIS RN TAKING VS AND DOING ASSESSMENT ON HIM, DECLINED TO HAVE RN TURN HIM TO CHECK BUTTOCKS AREA. F/C DRAINING DECREASED UO, TEA COLORED URINE. F/C NOT CHRONIC. EDEMA OF ANKLES AND FEET DECREASED, PT DECLINED TO HAVE LEGS ELEVATED. HAS BEEN MUCH MORE PLEASANT AND COOPERATIVE. CALL LIGHT WITHIN HANDS REACH. USING IT APPROPRIATELY. WAS MEDICATED X1 PER C/O L SIDED PAIN AND NECK PAIN, MED EFFECTIVE,
--- NOTE | 2018-08-27 06:47 | NUR ---
PT RESTING SOUNDLY, VS DEFERRED AT THIS TIME, WILL DO WHEN AWAKE IF PT ALLOWS.
--- NOTE | 2018-08-27 09:10 | NUR ---
SPOKE WITH PATIENT IN ROOM. PATIENT ORIENTED. PATIENT WANTS TO "GO HOME". DISCUSSED WITH PATIENT THAT WE WANT THAT ALSO, BUT THAT HE IS VERY WEAKENED AND NEEDS TO CONTINUE THERAPY. DISCUSSED HE WILL NEED TO BE ABLE TO TRANSFER WITH MINIMAL HELP TO GO HOME WITH CURRENT CAREGIVERS AND SON. WE DISCUSSED THAT I WILL SPEAK WITH HIS FAMILY AGAIN IN FORMING A PLAN TO GET HIM HOME AND HE AGREES TO "WORK HARDER" WITH PHYSICAL THERAPY. HE AGREES HE IS VERY WEAK.
--- NOTE | 2018-08-27 11:10 | NUR ---
SPOKE WITH CAREGIVER JEAN PIERRE IN [facility]. SHE STATES THEY HAVE A PLAN THAT PATIENTS SON WILL BE STAYING WITH HIM AT NIGHT AND SHE AND CAREGIVER NICHELLE WILL BE AVAILABLE DAYS. BUT SHE STATES HE HAS TO BE ABLE TO ASSIST IN TRANSFERRING SELF. WE DISCUSSED POSSIBLE JINNY LIFT, BUT SHE STATES SHE DOES NOT THINK THAT WILL BE WORKABLE, THAT HE WILL NEED TO BE CLOSER TO OLD BASELINE. WE DISCUSSED THAT PATIENT IS ADAMANT THAT HE NOT GO TO [facility] FACILITY. WE DISCUSSED THAT DEPENDING ON WHAT PT SUGGESTS, IF WE CAN LOOK AT POSSIBLE TRANSITIONAL SWING BED HERE, OR IF HE WILL NEED TO GO TO FACILITY, IF HE WOULD AGREE TO IT. SHE AGREES WITH THIS APPROACH. SHE STATES SHE WILL TALK WITH HIS SON TODAY.
--- NOTE | 2018-08-27 11:35 | NUR ---
REPORT RECEIVED FROM GAMALIEL JOHNS. PT REQUESTS ASSISTANCE UP TO COMODE. PT ASSISTED 3PA, GAIT BELT UP TO COMODE AND THEN TO CHAIR. PT COMPLIANT WITH CARES. PULSE OX READS 100%. RT TO BEDSIDE. PT DEMONSTRATES USE OF INCENTIVE SPIROMETER AND REACHES 1250. TOP TRIMMER AT CHAIR SIDE. CALL LIGHT WITHIN REACH.
--- NOTE | 2018-08-27 11:57 | NUR ---
NOON ASSESSMENT DUE. THIS RN TO BEDSIDE. PT REQUESTS ASSISTANCE UP TO [facility] FOR BM. 3PA, FWW GAIT BELT TRANSFER TO [facility]. PT VOIDS. BED BATH GIVEN. NOLAND CATHETER DC'D PER MD ORDER. ASSESSMENT DONE. PT CONTINUES TO HAVE COURSE LUNG SOUNDS WITH A PRODUCTIVE COUGH. PT TRANSFERED BACK TO CHAIR. ENSURE MILKSHAKE PROVIDED. LINENS CHANGED. PT USES INCENTIVE SPIROMETER AND REACHES 1200. PT DENIES ADDITIONAL REQUESTS OR COMPLAINTS AT THIS TIME. CHAIR ALARM ON. PTS CAREGIVER AT BEDSIDE.
--- NOTE | 2018-08-27 13:14 | NUR ---
THIS RN TO ROOM TO CHECK ON PT. PT VISITING WITH FAMILY. NO REQUESTS OR COMPLAINTS. CALL LIGHT WITHIN REACH. 100% O2 SATURATION ON MONITOR. CHAIR ALARM ON.
--- NOTE | 2018-08-27 14:16 | NUR ---
PT CALL LIGHT ON. PT REQUESTS TO TAKE A NAP IN THE CHAIR. WARM BLANKET PROVIDED. PT ENCORUAGED TO DRINK WATER. 2 SIPS TAKEN.
--- NOTE | 2018-08-27 14:25 | NUR ---
PT PULSE OX ALARM AT 91%. PT SITTING IN CHAIR, RESTING WITH HAND ON FOREHEAD. RN WENT IN TO ASSESS PT AND SENSOR. RELIEVED TENSION ON SENSOR WIRE AND O2 JUMPED TO 96% AND MAINTAINED. PT WENT BACK TO SLEEP.
--- NOTE | 2018-08-27 15:47 | NUR ---
AFTERNOON ASSESSMENT AND MEDICATION DUE. THIS RN TO BEDSIDE. PT REQUESTS TO BE "SCOOTED UP" IN THE CHAIR. 2PA TO BOOST PT. PT DENIES PAIN AND NAUSEA. ASSESSMENT DONE. LUNG SOUNDS COURSE. PT REACHES 1750 ON INCENTIVE SPIROMETER FOR THIS RN. PT HAS YET TO VOID. BLADDER SCANNED AND SHOWES 136ML. PT ENCORUAGED TO DRINK BUT WILL ONLY TAKE SMALL SIPS. MD INFORMED. MEDICATION GIVEN (SEE MAR). RT TO BEDSIDE FOR BREATHING TREATMENT. PT PLEASENT WITH CARES, SAYING PLEASE, THANKYOU, AND I'M SORRY. NO ADDTIIONAL REQUESTS OR COMPLAINTS AT THIS TIME. CHAIR ALARM ON. CALL LIGHT WITHIN REACH.
--- NOTE | 2018-08-27 16:14 | NUR ---
CALLED REGARDING URINE OUTPUT. NO NEW ORDERS AT THIS TIME. WILL CONTINUE TO MONITOR.
--- NOTE | 2018-08-27 17:13 | NUR ---
THIS RN TO ROOM TO CHECK ON PT. DINNER ARRIVED. PT STATES HE IS FEELING NAUSEATED. PT STATES "IT JUST CAME ON REALLY FAST ABOUT A HALF HOUR AGO." SEE MAR FOR MEDICATION GIVEN. DINNER HELD FOR LATER. EMESIS BAG PROVIDED. PT DENIES CHEST PAIN OR OTHER NEW SYMPTOMS. CALL LIGHT WITHIN REACH.
--- NOTE | 2018-08-27 17:30 | NUR ---
THIS RN TO ROOM TO CHECK ON PT. PT REPORTS NAUSEA IS "A LITTLE" BETTER. PT REPORTS LEFT FLANK PAIN AT 5/10. PT DENIES NEED FOR MEDICATION STATING "I'LL JUST GET THROUGH IT." PT STATES "I DON'T KNOW WHERE THIS CAME FROM ALL OF A SUDDEN." BADDER SCAN SHOWS 251 ML. MD NOTIFIED OF NEW SYMPTOMS, STATES TO CONTINUE TO MONITOR FOR NOW. CALL LIGHT WITHIN REACH. CHAIR ALARM ON.
--- NOTE | 2018-08-27 17:49 | NUR ---
PATIENT SITTING UP IN CHAIR. VITAL SIGNS AND I&O DONE. PATIENT DID NOT VOID YET. RN NOTIFIED. ICE WATER GIVEN. CALL LIGHT WITHIN REACH. NO OTHER NEEDS AT THIS TIME
--- NOTE | 2018-08-27 18:05 | NUR ---
PT HERE FOR PNEUMONIA AND DECONDITIONING. PRN AND SCHEDULED NEBS, RT INVOLVED. PT USING INCENTIVE SPIROMETER. PHYSICAL THERAPY AND OCCUPATIONAL THERAPY INVOLVED AND WORKING WITH PT TODAY. 3PA, GAIT BELT, FWW PIVOT TO CHAIR, COMODE AND BED. PT UP TO CHAIR MOST OF THIS SHIFT. PIV'S SALINE LOCKED. NUZHAT WHATLEY TODAY, PT HAS YET TO VOID, MD AWARE. NEW NAUSEA AND LEFT FLANK PAIN THIS EVENING, CONTINUE TO MONITOR. PT USING CALL LIGHT AND COMPLIANT/PLESANT WITH CARES.
--- NOTE | 2018-08-27 18:48 | NUR ---
MEDICATION DUE. THIS RN TO BEDSIDE. PT UP TO CHAIR AND VISITING WITH FAMILY. LIDOCANE PATCH APPLIED TO RIGHT RIBS. PT REQUESTS ASSISTANCE BACK TO BED. 3PA, GAIT BELT BACK TO BED. PT ABLE TO STAND AND PIVOT. WARM BLANKETS PROVIDED. PT REPORTS "JUST A LITTLE" NAUSEA AND 1/10 PAIN IN HIS RIGHT FLANK. PT REACHES 1500 ON INCENTIVE SPROMETER. BED RAILS UP. BED ALARM ON. CALL LIGHT WITHIN REACH.
--- NOTE | 2018-08-27 19:00 | NUR ---
CHARGE ROUNDING DONE. PATIENT RESTING IN BED. PRIMARY RN IN ROOM. NO CONCERNS AT THIS TIME.
--- NOTE | 2018-08-27 19:20 | NUR ---
RECEIVED REPORT FROM DAY SHIFT RN. PATIENT IS RESTING IN BED WATCHING TV. PATIENT DENIES ANY NEEDS. CALL LIGHT IN REACH. ALARM ON FOR SAFETY.
--- NOTE | 2018-08-27 21:44 | NUR ---
PER GAMALIEL MILLER, BLADDER SCANNED, 350 ML.
--- NOTE | 2018-08-27 22:02 | NUR ---
ASSESMENT COMPLETED. PATIENT DENIES ANY PAIN. PATIENT REPOSITIONED. PATIENTS EVENING MEDICATIONS GIVEN PER ORDER. PATIENTS ATTEND REMAINS DRY. PATIENT BLADDER SCANNED AND HAS 350 IN HIS BLADDER. PATIENT ENCOURAGED TO DRINK. PATIENT EDUCATED ON THE NEED TO VOID. PATIENT VERBALIZES UNDERSTANDING. PATIETN DENIES ANY FURTHER NEEDS. CALL LIGHT IN REACH.
--- NOTE | 2018-08-28 00:08 | NUR ---
PATIENT STATED HE NEEDED TO USE URINAL. PATIENT WAS UNABLE TO VOID. PATIENT DENIES ANY FURTHER NEEDS. CALL LIGHT IN REACH. BED ALARM ON FOR SAFETY.
--- NOTE | 2018-08-28 01:50 | NUR ---
PATEINT USED URINAL AND WAS ABLE TO VOID. PATIENT REPOSITIONED IN BED. PATIENT DENIES ANY FURTHER NEEDS. CALL LIGHT IN REACH.
--- NOTE | 2018-08-28 03:23 | NUR ---
PATEINT REPOSITIONED PER REQUEST. PATIENTS LIGHTS TURNED OFF PER REQUEST. BED ALRM REMAINS ON FOR SAFETY. CALL LIGHT IN REACH.
--- NOTE | 2018-08-28 04:16 | NUR ---
PATIENT IS RESTING IN BED WITH EYES CLOSED, RR 18. CALL LIGHT IN REACH. BED ALARM ON FOR SAFETY.
--- NOTE | 2018-08-28 06:09 | NUR ---
VITALS TAKEN AND RECORDED. PATIENT ASSISTED WITH USING URINAL. PATIENTS INTAKE AND OUPUT RECORDED. PATIENT REPOSITIONED IN BED. PATIENT DENIES ANY NEEDS. CALL LIGHT IN REACH. BED ALARM ON FOR SAFETY.
--- NOTE | 2018-08-28 06:15 | NUR ---
PATIENT RESTED ON AND OFF THROUGHTOUT THE SHIFT. PATIENT IS ON A REGULAR DIET AND TOLERATING IT WELL, NO COMPLAINTS OF NAUSEA. PATIENT IS WORKING WITH PT/OT. PATIENT IS A 3PA W/GAIT BELT AND FWW. PATIENT IS ON RA. PATIENT HAS BEEN ABLE TO VOID AND USES URINAL IN BED. PATIENT HAS NOT BEEN OUT OF BED ON THIS SHIFT. PATIENT USES CALL LIGHT APROPRIATELY. BED ALARM ON FOR SAFETY.
--- NOTE | 2018-08-28 07:26 | NUR ---
Pt sleeping in bed, resp even and non labored. Pt appears comfortable and without pain, flacc scale 0/10. Personal supplies and call light within reach of pt. No needs. Close to RN station.
--- NOTE | 2018-08-28 07:39 | NUR ---
PATIENT RESTING IN BED. PATIENT'S BREAKFAST ORDERED. CALL LIGHT WITHIN REACH. NO OTHER NEEDS AT THIS TIME
--- NOTE | 2018-08-28 12:35 | NUR ---
CARE CONFERENCE PT AND HIS SON PABLO WERE PRESENT WELL DR SANDOVAL AND MYSELF. PER OUR CONVERSATION WITH EARLIER TODAY WITH PT AND PT WAS STATING THAT HE WAS NOT GOING TO GO TO A FACILITY AND WAS USING PROFANITY. DR SANDOVAL CALLED THE SON PABLO TO COME IN AND MEET WITH US AND WE WOULD HAVE A MEETING ABOUT WHAT NEEDED TO GO ON GOING FORTH. DR SANDOVAL EXPLAINED TO THE PT AND SON THAT HE WOULD HAVE TO GO TO A SNF HE IS NOT STRONG ENOUGH TO GO HOME HE WISHES, PT NEEDS TO GET STRONGER TO TRANSFER FROM THE BED TO THE CHAIR, CHAIR TO BED AND TOILET WITH MINIMAL ASSIST. PT STATES HE CAN DO THAT NOW BUT PT STATES HE CAN STAND FOR LIKE 11 SECONDS. THEY WILL CONTINUE WORKING WITH HIM BUT HE NEEDS TO GET STRONGER SO THAT HIS CAREGIVERS CAN HANDLEHIM--RIGHT NOW 2 TO 3 PERSON TO GET OUT OF BED. SON AGREES AND NOW THE PT IS AGREEING AND WOULD LIKE CHART NOTES SENT TO [facility]. NO FURTHER QUESTIONS, OR CONCERNS.
--- NOTE | 2018-08-28 12:52 | NUR ---
Pt in bed at this time, resp even and non labored. Son at bedside visiting. Pt denies pain. Personal supplies and call light within reach.
--- NOTE | 2018-08-28 14:02 | NUR ---
PATIENT IN BED WATCHING TV. FRIEND IN ROOM. VITAL SIGNS AND I&O DONE. CALL LIGHT WITHIN REACH. NO OTHER NEEDS AT THIS TIME
--- NOTE | 2018-08-28 14:06 | NUR ---
[facility] CALLED AND STATED THEY DID NOT RECIEVE ALL THE NOTES AND COULD I RESEND THE ONES THEY ARE MISSING. REFAXED NOTES, RECIEVED FAX CONFIRMATION.
--- NOTE | 2018-08-28 14:10 | NUR ---
FAXED CHART NOTES TO [facility] INCLUDING FACE SHEET, ER NOTES, H AND P, PROG NOTES, PT, OT EVALS, AND NOTES. RECIEVED FAX CONFIRMATION.
--- NOTE | 2018-08-28 14:20 | NUR ---
PATIENT RESTING IN BED. PATIENT'S ATTENDS AND LINENS CHANGED. FOUR PERSON ASSISTING. CALL LIGHT WITHIN REACH. BED ALARM ON. NO OTHER NEEDS AT THIS TIME
--- NOTE | 2018-08-28 16:40 | NUR ---
CALLED AND LEFT MESSAGE FOR MECHELLE TO CALL ME BACK REGARDING THIS PT.
--- NOTE | 2018-08-28 17:20 | NUR ---
Oxycodone 5mg po admin for reports of 4/10 right rib pain.
--- NOTE | 2018-08-28 17:25 | NUR ---
CALLED [facility] AGAIN, NO ANSWER FROM MECHELLE, MESSAGE LEFT. CALLED PT SON PABLO AND LEFT MESSAGE FOR HIM THAT HIS FATHER WOULD NOT BE GOING ANYWHERE TODAY.
--- NOTE | 2018-08-28 17:50 | NUR ---
On RA. SL IV. tolerating diet. 3PA with walker and gait belt. Oxycodone for rib pain fx(S). Urinal, incont at times-brief in place.
--- NOTE | 2018-08-28 19:46 | NUR ---
RECEIVED REPORT FROM DAY SHIFT RN. PATIENTIS RESTING IN BED WATCHING TV. PATIENT DENIES ANY NEEDS. PATIENTS BED ALARM OS ON FOR SAFETY. CALL LIGHT IN REACH.
--- NOTE | 2018-08-28 20:24 | NUR ---
PATIENT ASSESMENT COMPLETED. PATIENTS VITALS TAKEN AND RECORDED. PATIENT ASSISTED IN USING URINAL. PATIENT WAS ABLE TO VOID. PATIENTS INTAkE AND OUPUT RECORDED. PATIENT DENIES ANY PAIN AT THIS TIME. LIDO PATCH IN PLACE ON RIGHT RIBS. PATIENTS EVENING MEDICATIONS GIVEN PER ORDER. PATIENT IS RESTING IN BED WATCHING TV. PATIENT DENIES ANY NEEDS AT THIS TIME. CALL LIGHT IN REACH. BED ALARM ON FOR SAFETY. PATIENT IS SL X2 AND IVS FLUSH WELL.
--- NOTE | 2018-08-28 22:00 | NUR ---
REPORT RECEIVED FROM ANGELA ALSTON. PATIENT RESTING IN BED. WAKES EASILY WHEN RN ENTERS ROOM. TELLS RN TO "GET OUT OF HERE". CALL LIGHT IN HAND. BED ALARM ON.
--- NOTE | 2018-08-28 23:45 | NUR ---
PATIENT WAS INCONTINENT OF URINE AND REQUIRED A FULL BED CHANGE. ANGELA ALSTONVP [employer] DEVELOPMENT PATIENT FOR RIGHT RIB PAIN. STAFF THEN WAITED 20MINS TO ALLOW PAIN MEDICATION TO TAKE EFFECT. PATIENT WAS NONCOMPLAINT WITH CARE AND VERBALLY ABUSIVE TO STAFF DURING BED CHANGED. ASSURED PATIENT THE BEDDING REQUIRED CHANGE TO PROTECT HIS SKIN AND HEALTH. PATIENT REPORTED SEVERE PAIN IN RIGHT RIBS. ASSISTED PATIENT TO POSITION FOR COMFORT. PATIENT DEMANDED STAFF LEAVE HIS ROOM. BED ALARM ON. CALL LIGHT IN REACH.
--- NOTE | 2018-08-29 06:43 | NUR ---
PATIENT WAS NONCOMPLAINT WITH CARE THIS SHIFT. DUE TO PAIN HE WAS REFUSING HIS ATTENDS CHANGED WHEN SOILED. 2-3 PA TO ROLL HIM. PRN OXY PROVIDED SOME PAIN RELIEF. LIDOCAIN PATCH PER ORDER. PATIENT TOLERATING ROOM AIR. SL. REGULAR DIET. 2-3 PA STAND PIVOT. PT/OT. POSSIBLE DC TODAY.
--- NOTE | 2018-08-29 07:40 | NUR ---
Pt sleeping at this time, resp even and non labored. Pt appears without pain. Personal supplies and call light within reach.
--- NOTE | 2018-08-29 08:16 | NUR ---
CALLED AND LEFT A MESSAGE FOR MECHELLE FROM T TO CALL ME BACK.
--- NOTE | 2018-08-29 08:44 | NUR ---
MECHELLE RETURNED MY CALL STATING THAT THE [facility] WAS LOOKING AT THE NOTES AND WHEN SHE IS FINISHED MECHELLE WILL CALL US BACK AND LET US KNOW IF THEY WILL TAKE THE PT.
--- NOTE | 2018-08-29 10:19 | NUR ---
PATIENT IN BED GETTING READY TO WORK WITH PT. RN IN ROOM. FRESH WATER GIVEN. CALL LIGHT IN REACH. NO FURTHER NEEDS AT THIS TIME.
--- NOTE | 2018-08-29 11:47 | NUR ---
Caregiver Etelvina at bedside visiting with pt. Call light within reach of pt. No needs at this time. Personal supplies within reach.
--- NOTE | 2018-08-29 12:59 | NUR ---
PATIENT UP TO CHAIR FROM BED, 3PA GAIT BELT. LINENS CHANGED. CALL LIGHT IN REACH. NO FURTHER NEEDS AT THIS TIME.
--- NOTE | 2018-08-29 14:00 | NUR ---
PATIENT SITTING IN CHAIR. WARM BLANKET GIVEN. CALL LIGHT IN REACH. NO FURTHER NEEDS AT THIS TIME.
--- NOTE | 2018-08-29 15:09 | NUR ---
CALLED AND LEFT MESSAGE FOR MECHELLE FROM [facility] TO CALL ME BACK SO I COULD KNOW IF THEY HAVE ACCEPTED PT OR NOT.
--- NOTE | 2018-08-29 15:13 | NUR ---
MECHELLE CALLED ME BACK STATING THAT THE [facility] WANTS TO SEE CHART NOTES, PROG NOTES AND PT NOTES FROM TODAY AND WILL THEN DECIDE IF THEY WILL TAKE PT. STATES IF THEY DO TAKE HIM IT WILL BE TOMORROW
--- NOTE | 2018-08-29 15:20 | NUR ---
FAXED OFF [facility] CHART NOTES INCLUDING, NURSING, PROG NOTES, AND PT NOTES TO [facility]. RECIEVED A FAX CONFIRMATION.
--- NOTE | 2018-08-29 15:51 | NUR ---
PT ASSISTED TO WHEELCHAIR AND TOLERATED CHAIR RIDE AROUND THE UNIT. PT TRANSFERRED WITH 3PA WITH FWW AND GAIT BELT. ADMIN OXYCODONE 5MG PO FOR REPORTS OF 5/10 RIGHT RIB PAIN. PT IS ON RA, RESP EVEN AND NON LABORED. PERSONAL SUPPLIES AND CALL LIGHT WITHIN REACH.
--- NOTE | 2018-08-29 18:06 | NUR ---
A&OX3. RA. 3PA WITH WALKER/GAIT BELT. DECREASED APPETITE. URINAL, INCONT AT TIMES.
--- NOTE | 2018-08-29 20:21 | NUR ---
ROUNDED CHARGE. PATIENT IS RESTING IN BED. PATIENTS DENTURES REMOVED AND PLACED IN DENTURE CUP WITH WATER AND EFFERDENT. NO NEEDS NOTED. CALL LIGHT IN REACH.
--- NOTE | 2018-08-29 21:31 | NUR ---
ASSESSMENT AND MEDICATIONS DUE. pt COOPERATIVE. ASSESSMENT DONE. MEDICATIONS GIVEN (SEE MAR). PRN PAIN MED GIVEN FOR 5/10 PAIN AND IN ANTICIPATION OF DEPENDS CHANGE. CALL LIGHT WITHIN REACH. NO FURTHER REQUESTS AT THIS TIME.
--- NOTE | 2018-08-29 21:44 | NUR ---
V/S AND I&O DONE AND CHARTED.
--- NOTE | 2018-08-29 22:05 | NUR ---
CHANGED pt's DEPENDS WITH ASSISTANCE FROM GARCIA CAMPOS, AND GAMALIEL MILLER. SETTLED FOR NIGHT. CALL LIGHT WITHIN REACH. BED ALARM ON.
--- NOTE | 2018-08-29 23:28 | NUR ---
ROUNDED ON pt. RESTING WITH EYES CLOSED, RESPIRATIONS REGULAR, RATE = 18. CALL LIGHT WITHIN REACH. BED ALARM ON.
--- NOTE | 2018-08-30 02:26 | NUR ---
ROUNDED ON pt. RESTING WITH EYES CLOSED, RESPIRATIONS REGULAR, RATE = 16. CALL LIGHT WITHIN REACH. BED ALARM ON.
--- NOTE | 2018-08-30 04:15 | NUR ---
ROUNDED ON pt. RESTING WITH EYES CLOSED, RESPIRATIONS REGULAR, RATE = 16. CALL LIGHT WITHIN REACH. BED ALARM ON.
--- NOTE | 2018-08-30 04:35 | NUR ---
pt RESTED MOST OF SHIFT. PRN PAIN MED X1. INCONTINENT. 3PA PIVOT TRANSFER. IV SL. TOLERATING REGULAR DIET, ENCOURAGE PO INTAKE. PLAN TO DC TO [place].
--- NOTE | 2018-08-30 06:26 | NUR ---
ASSESSMENT DONE. VSS. ATTENDS CHANGED, NEW GOWN AND TOP SHEET. PROVIDED TV REMOTE AND WATER. pt UNCOOPERATIVE WHILE ROLLING BUT OTHERWISE PLEASANT. BED ALARM ON. CALL LIGHT WITHIN REACH.
--- NOTE | 2018-08-30 07:15 | NUR ---
REPORT RECEIVED FROM GAMALIEL MEDRANO. PT RESTING WITH EYES CLOSED, BED RAILS UP. CALL LIGHTIN REACH. BED ALARM ON.
--- NOTE | 2018-08-30 09:05 | NUR ---
MORNING MEDICATIONS AND ASSESSMENT DUE. THIS RN TO BEDSIDE. PT READY TO GET UP TO CHAIR. PT ABLE TO MOVE TO SIDE OF BED AND SITS UP WITH 2PA. 3PA, GAIT BELT PIVOT TRANSFER TO CHAIR. PT ASSITING WITH TRANSFER. PT COMPLIANT WITH CARES AND SAYING PLEASE AND THANK YOU. ASSESSMENT DONE. LUNG SOUNDS COURSE IN LOWER LOBS, INCENTIVE SPIROMETER USED, PT REACHES 1750. PT ASSISTED WITH URINAL. MEDICATIONS GIVEN. PT REPORTS 3/10 PAIN IN RIGHT RIBS (SEE MAR FOR MEDICATION GIVEN). CHAIR ALARM ON. CALL LIGHT WITHIN REACH.
--- NOTE | 2018-08-30 09:16 | NUR ---
MD TO BEDSIDE FOR ROUNDS. ORDERS TO REMOVE PIV'S. PT ANTICIPATING DISCHARGE TODAY. PIV'S REMOVED PER PROTOCOL. GAUZE AND COBAN APPLIED. PT EATING BREAKFAST, NO REQUESTS OR COMPLAINTS. CHAIR ALARM ON. CALL LIGHT WITHIN REACH.
--- NOTE | 2018-08-30 09:28 | NUR ---
RECIEVED A CALL [facility] STATING [facility] WILL BE ABLE TO TAKE MR ARAGON BUT THEY DO NOT HAVE TRANSPORT TODAY SO WE WILL HAVE TO GET A WC TAXI RIDE FOR HIM. THE TAXI CAN GO TO [facility] AND CHIEF CREATIVE OFFICER A WC AND BRING IT HERE FOR HIM. TALKED WITH JEAN PIERRE BOBO (ONE OF PTS CAREGIVERS) WHEN SHE CALLED AND LET HER KNOW PT WILL [facility] TO [facility]. ALSO CALLED PT SON PABLO @ [phone], MESSAGE LEFT FOR HIM TO CALL HERE SO I CAN INFORM HIM OF THIS ALSO.
[2018-08-30] MEDS ORDERED: OXYCODONE HCL5 MG PO (09:46)
--- NOTE | 2018-08-30 09:46 | NUR ---
PATIENT SITTING UP IN CHAIR. FRESH WATER GIVEN. CALL LIGHT IN REACH. NO FURTHER NEEDS AT THIS TIME.
[2018-08-30] MEDS ORDERED: HEALTHYLAX17 GM PO (09:48)
[2018-08-30] MEDS ORDERED: SENNA LAX8.6 MG PO (09:48)
[2018-08-30] MEDS ORDERED: THERA TABLET400 MCG PO (09:49)
[2018-08-30] MEDS ORDERED: LIDOCAINE1 EACH TD (09:49)
[2018-08-30] MEDS ORDERED: FOLIC ACID1 MG PO (09:49)
[2018-08-30] MEDS ORDERED: MELATONIN3 MG PO (09:50)
--- NOTE | 2018-08-30 10:20 | NUR ---
FAXED ORDERS AND PASRR TO [facility]. RECIEVED FAX CONFIRMATION. AGAIN ATTEMPTED TO CALL PT ABELARDO SHAH AT [phone], NO ANSWER.
--- NOTE | 2018-08-30 10:57 | NUR ---
THIS RN TO ROOM TO CHECK ON PT. PT UP TO CHAIR, RESTING WITH EYES CLOSED, RR = 20 BPM. CALL LIGHT WITHIN REACH, CHAIR ALARM ON.
--- NOTE | 2018-08-30 12:31 | NUR ---
THIS RN TO ROOM TO CHECK ON PT. PT ASSISTED WITH ORDERING SOUP AND CRACKERS FOR LUNCH. ENSURE [place] PROVIDED. ASSESSMENT DONE. CRACKELS CONTINUE IN LOWER LOBES. PT DEMONSTRATES USE OF INCENTIVE SPIROMETER, REACHES 1750. PT UP TO STAND. DEPENDS CHANGED. PT REMAINS IN CHAIR. EATING SOUP. PT DENIES PAIN AND NAUSEA. CALL LIGHT WITHIN REACH. CHAIR ALARM ON.
--- NOTE | 2018-08-30 13:46 | NUR ---
TRANSPORTATION COMING FOR PT. PT UPDATED ON PLAN OF TRANSFER TO [place] FOR CONTINUED STRENGTH BUILDING. PT VERBALIZES UNDERSTANDING. PT ASSISTED WITH GETTING DRESSED. 3PA UP TO STAND. DEPENDS CHANGED. VITALS TAKEN. BELONGINGS PACKED IN BAG. AWAITING WHEELCHAIR TRANSPORTATION. CALL LIGHT WITHIN REACH.
--- NOTE | 2018-08-30 14:13 | NUR ---
TRANSPORT ARRIVED FOR PT. 3PA UP TO STAND, TRANSFER TO WHEEL CHAIR. TRANSFER PACKET GIVEN TO DESI DSOUZA. PT WHEELED FROM UNIT. REPORT CALLED TO [facility], GIVEN TO CASSIE Antonio WHO STATES His QUESTIONS HAVE BEEN ANSWERED.
== END 2018-08-30 14:12 | DRG 193 ==
LOC: ED 13:25 → CCU 15:28 → MS 08-16 16:00
PROVIDERS: ADMIT Student in an Organized Health Care Education/Training Program
DX: J18.9 Pneumonia, unspecified organism (principal); J96.21 Acute and chronic respiratory failure with hypoxia; G93.41 Metabolic encephalopathy; S22.41XA Multiple fractures of ribs, right side, initial encounter for closed fracture; J44.0 Chronic obstructive pulmonary disease with (acute) lower respiratory infection; J44.1 Chronic obstructive pulmonary disease with (acute) exacerbation; K59.00 Constipation, unspecified; I48.0 Paroxysmal atrial fibrillation; N18.9 Chronic kidney disease, unspecified; I25.10 Atherosclerotic heart disease of native coronary artery without angina pectoris; N40.1 Benign prostatic hyperplasia with lower urinary tract symptoms; R33.8 Other retention of urine; W19.XXXA Unspecified fall, initial encounter; Z66 Do not resuscitate; Z79.899 Other long term (current) drug therapy; Z99.81 Dependence on supplemental oxygen; Z79.1 Long term (current) use of non-steroidal anti-inflammatories (NSAID); Z98.61 Coronary angioplasty status; Z79.02 Long term (current) use of antithrombotics/antiplatelets; Z79.82 Long term (current) use of aspirin; Z79.51 Long term (current) use of inhaled steroids; Z79.52 Long term (current) use of systemic steroids
CPT/HCPCS: 36415; 36600; 51702; 51798; 71045; 71101; 74176; 80048; 80053; 81001; 82803; 83605; 83735; 83880; 84100; 84484; 85025; 85651; 87040; 87502; 93005; 93010; 94640; 94667; 94668; 94760; 94799; 96374; 96375; 97110; 97163; 97166; 97530; 97535; 99285-25; J0692; J0696; J1650; J2405; J2930; J3480; J7060; J7070; J7120; J7512